=== PATIENT | female | born 1995 | race Caucasian/White ===

== ENCOUNTER 2020-12-26 11:18 | Emergency (ER) | payer OTHER, SELFPAY ==
[2020-12-26 11:21] VITALS: BP 135/83; PULSE 114; RESP 16; TEMP 36.6; O2SAT 100
--- NOTE | 2020-12-26 11:57 | ED.GENADULT ---
HPI - General Adult General Chief complaint: Unspecified Stated complaint: swelling in throat Time Seen by Provider: 12/26/20 11:48 Source: patient Mode of arrival: ambulatory Limitations: no limitations History of Present Illness HPI narrative: This is a 25 year old female that presents to the ER for sore throat since yesterday. Also reports fever. Reports worsening swelling this morning which prompted her to be seen. Denies dyspnea or inability to swallow. Related Data Home Medications Medication Instructions Recorded Confirmed Blisovi Fe 1.530 (28) 1.5 tablet PO DAILY 09/15/19 09/24/19 alprazolam 0.5 mg PO TID 09/15/19 09/24/19 diphenhydramine HCl [Benadryl] 25 mg PO HS 09/15/19 09/24/19 sertraline 25 mg tablet 25 mg PO DAILY 09/24/19 09/24/19 subcutaneous insulin pump #1 each 09/24/19 09/24/19 Allergies Allergy/AdvReac Type Severity Reaction Status Date / Time cefixime Allergy Mild Rash Verified 09/22/19 12:58 clindamycin Allergy Mild Vomiting Verified 09/22/19 12:58 buspirone [From BuSpar] Allergy Anaphylaxis Verified 12/26/20 12:01 Review of Systems Review of Systems: Narrative: CONSTITUTIONAL: Reports fever ENT: Reports sore throat RESPIRATORY: Denies cough or dyspnea. All systems reviewed & are unremarkable except as noted in HPI and below PMFSH Past Medical History Medical History (Updated 12/26/20 @ 12:19 by Kandy Nick PA-C) Insulin dependent diabetes mellitus Marijuana abuse, continuous Family History Family History (System 09/22/19 @ 12:58 by Soco Osborne) Mother Family history of obesity Family history of mental disorder Family history of migraine headaches Grandparent Family history of mental disorder Depression Hypertension Asthma Carcinoma of colon Mother Hypertension Family history of renal cell carcinoma Social History Social History Smoking status: Never smoker Second hand tobacco smoke exposure: No Alcohol intake: never Substance use type: marijuana Gender identity (if verbalized by the patient): Female Exam Narrative: Exam Narrative: GENERAL: Well-appearing, well-nourished, and in no acute distress. HEAD: Normocephalic, atraumatic. EYES: EOMI. ENT: Nares clear, no rhinorrhea or epistaxis. Mucous membranes moist. Oropharynx with symmetric tonsillar hypertrophy, no exudate or other lesions. Uvula is midline. No trismus. NECK: Supple. No adenopathy or masses. CHEST: Clear to auscultation. No respiratory distress. No wheezes rales or rhonchi HEART: Regular rate and rhythm. No murmur heard. Normal peripheral pulses. EXTREMITIES: Normal range of motion. No edema. SKIN: Warm, dry, no rash. NEURO: No focal deficits. Alert and oriented x3. PSYCH: Normal mood and affect Course Vital Signs Vital signs: Vital Signs Temperature 97.9 F 12/26/20 11:21 Pulse Rate 114 H 12/26/20 11:21 Respiratory Rate 16 12/26/20 11:21 Blood Pressure 135/83 12/26/20 11:21 Pulse Oximetry 100 12/26/20 11:21 Temperature 97.9 F 12/26/20 11:21 Pulse Rate 114 H 12/26/20 11:21 Respiratory Rate 16 12/26/20 11:21 Blood Pressure 135/83 12/26/20 11:21 Pulse Oximetry 100 12/26/20 11:21 Medical Decision Making MDM Narrative Medical decision making narrative: Patient presents the emergency department for sore throat and fever. She is afebrile and nontoxic-appearing. Symmetric tonsillar hypertrophy. Uvula is midline. Her rapid strep was negative, but with typical symptoms I will treat with an antibiotic. We will send strep for culture. Patient also given a dose of Decadron to help with swelling. She is stable and felt appropriate for further outpatient evaluation. She was given warnings to return to the ED Vital Signs Vital Signs: Vital Signs Temperature 97.9 F 12/26/20 11:21 Pulse Rate 114 H 12/26/20 11:21 Respiratory Rate 16 12/26/20 11:21 Blood Pressure 135/8
[2020-12-26] MEDS: AMOXICILLIN 500 MG CAPSULE PO (12:30)
== END 2020-12-26 12:33 | disposition home or self-care (01) ==
PROVIDERS: Emergency Provider Family Medicine; PCP Nurse Practitioner Family
DX: J02.9 Acute pharyngitis, unspecified (principal); E11.9 Type 2 diabetes mellitus without complications; Z79.4 Long term (current) use of insulin; Z96.41 Presence of insulin pump (external) (internal)
CPT/HCPCS: 87081; 87880; 96374; 99284; A9270; J1100

== ENCOUNTER 2020-12-31 15:00 | Emergency (ER) | payer OTHER, SELFPAY ==
[2020-12-31 15:02] VITALS: BP 133/81; PULSE 132; RESP 18; TEMP 36.7; O2SAT 99
[2020-12-31 15:49] VITALS: PULSE 119
[2020-12-31 15:50] LABS: Basophils Percent Auto 0.3 % (0.2-1.2); Eosinophils Absolute Auto 0.1 K/mm3 (0-0.3); Eosinophils Percent Auto 1.1 % (0-4.4); Hematocrit 40.7 % (37.0-47.0); Hemoglobin 14.5 g/dL (12.0-15.0); Immature Granulocyte Absolute 0.01 K/mm3 (0.00-0.031); Immature Granulocyte Percent A 0.2 % (0-0.5); Lymphocytes Absolute Auto 1.22 K/mm3 (0.9-3.2); Lymphocytes Percent Auto 19.1 % (18.3-44.2); Mean Corpuscular HGB Conc 35.6 g/dl (32-36); Mean Corpuscular Hemoglobin 32.2 pg (26-34); Mean Corpuscular Volume 90.2 fl (80-100); Mean Platelet Volume 9.5 fl (7.4-10.4); Monocytes Absolute Auto 0.4 K/mm3 (0.1-0.6); Monocytes Percent Auto 6.1 % (2.6-8.5); Neutrophils Absolute Auto 4.7 K/mm3 (1.3-6.7); Neutrophils Percent Auto 73.2 % (45.5-73.1); Platelet Count Result 273 k/mm3 (150-375); Red Blood Count 4.51 M/mm3 (4.2-5.4); Red Cell Distribution Width 11.7 % (11.5-14.5); White Blood Count 6.4 K/mm3 (4.5-10.0)
[2020-12-31 15:54] LABS: Add Urine Microscopic? YES; Amorphous Sediment Urine Few; Appearance Urine Cloudy (Clear); Bacteria Urine Trace /hpf; Bilirubin Urine Negative (Negative); Blood Urine Negative (Negative); Color Urine Yellow (Yellow); Glucose Urine UA 1+ mg/dL (Negative); Ketones Urine 2+ mg/dL (Negative); Leukocyte Esterase Ur Negative LEU/UL (Negative); Mucus Urine Rare /lpf; Nitrate Urine Negative (Negative); Protein Urine 1+ mg/dL (Negative); RBC Urine 0-2 /hpf (0-2); Specific Grav Ur 1.018 (1.001-1.035); Squamous Epithelial Cell Urine Occasional /hpf (Few); Urobilinogen Urine Negative mg/dL (<2.0); WBC Urine 0-3 /hpf
[2020-12-31] MEDS: SODIUM CHLORIDE 0.9% IV 1,000 ML 999 ML IV CONT ×2 (16:01→16:45)
[2020-12-31 16:03] LABS: Alanine Aminotransferase 21 U/L (4-35); Albumin Level 4.8 g/dL (3.5-5.1); Alkaline Phosphatase 51 U/L (38-126); Anion Gap 11 mmol/L (8-16); Aspartate Amino Transferase 32 U/L (14-36); Bilirubin,Total 1.1 mg/dL (0.2-1.3); Blood Urea Nitrogen 14 mg/dL (7-17); Calcium 9.7 mg/dL (8.4-10.2); Carbon Dioxide 22 mmol/L (22-30); Chloride 103 mmol/L (98-107); Estimated CRCL calculation 80 ml/min; Estimated Glomerular Filt Rate > 60; Glucose 160 mg/dL (65-105); Potassium 3.8 mmol/L (3.4-5.0); Sodium 136 mmol/L (137-145)
--- NOTE | 2020-12-31 16:20 | ED.PSYCH ---
HPI - Psych General Chief Complaint: Psychiatric Symptoms <Brijesh Ramirez MD - Last Filed: 12/31/20 18:47> Stated Complaint: psych evaluation <Brijesh Ramirez MD - Last Filed: 12/31/20 18:47> Time Seen by Provider: 12/31/20 15:24 <Brijesh Ramirez MD - Last Filed: 12/31/20 18:47> History of Present Illness HPI Narrative: Patient is a 25-year-old female who presents ER after reported suicide attempt. Patient reports 2 days ago she tied a purse strap around her neck and attempt to end her own life she. She tied it to a metal bar by her window and then the per strep broke. She did not ever become fully suspended in the air. She has no difficulty breathing or swallowing. Patient has no formal diagnosis of depression and is on no psychiatric medications. She reports that on both sides of her family including her parents there is mental illness. She denies hearing voices. Reports she felt very robotic when she was tying the purse strap and try not and placing around her neck. Reports there is not no inciting event. Patient reported this behavior to her primary care physician today for an unrelated issue. Chart review shows diagnosis of depression in the past. <Brijesh Ramirez MD - Last Filed: 12/31/20 18:47> Related Data Home Medications: Home Medications Medication Instructions Recorded Confirmed alprazolam 0.5 mg PO TID 09/15/19 09/24/19 diphenhydramine HCl [Benadryl] 25 mg PO HS 09/15/19 09/24/19 norethindrone-e.estradiol-iron 1.5 tablet PO DAILY 09/15/19 09/24/19 [Blisovi Fe 1.5/30 (28)] subcutaneous insulin pump #1 each 09/24/19 09/24/19 pravastatin 12/31/20 <Brijesh Ramirez MD - Last Filed: 12/31/20 18:47> Allergies/Adverse Reactions: Allergies Allergy/AdvReac Type Severity Reaction Status Date / Time cefixime Allergy Mild Rash Verified 12/31/20 15:14 clindamycin Allergy Mild Vomiting Verified 12/31/20 15:14 buspirone [From BuSpar] Allergy Anaphylaxis Verified 12/31/20 15:14 <Brijesh Ramirez MD - Last Filed: 12/31/20 18:47> Review of Systems Review of Systems: All systems reviewed & are unremarkable except as noted in HPI and below <Brijesh Ramirez MD - Last Filed: 12/31/20 18:47> Constitutional: Constitutional: Denies chills, Denies fever(s) and Denies weakness <Brijesh Ramirez MD - Last Filed: 12/31/20 18:47> ENT: Denies dysphagia, Denies nasal congestion and Denies sore throat <Brijesh Ramirez MD - Last Filed: 12/31/20 18:47> Cardiovascular: Cardiovascular: Denies chest pain and Denies radiating jaw, neck or arm pain <Brijesh Ramirez MD - Last Filed: 12/31/20 18:47> Respiratory: Respiratory: Denies cough, Denies dyspnea and Denies wheezing <Brijesh Ramirez MD - Last Filed: 12/31/20 18:47> Psychiatric: Psychiatric: Denies anxiety, Denies depression, Denies homicidal ideation and Denies suicidal ideation <Brijesh Ramirez MD - Last Filed: 12/31/20 18:47> PMFSH Past Medical History Medical History: Medical History (Updated 12/31/20 @ 18:47 by Brijesh Ramirez MD) Insulin dependent diabetes mellitus Marijuana abuse, continuous MDD (major depressive disorder) <Brijesh Ramirez MD - Last Filed: 12/31/20 18:47> Surgical History Surgical History: Surgical History (Updated 12/31/20 @ 16:22 by Brijesh Ramirez MD) No pertinent past surgical history <Brijesh Ramirez MD - Last Filed: 12/31/20 18:47> Family History Family History: Family History (System 09/22/19 @ 12:58 by Soco Osborne) Mother Family history of obesity Family history of mental disorder Family history of migraine headaches Grandparent Family history of mental disorder Depression Hypertension Asthma Carcinoma of colon Mother Hypertension Family history of renal cell carcinoma <Brijesh Ramirez MD - Last Filed: 12/31/20 18:47> Social History Social History: Social History (Reviewed 09/24/19 @
[2020-12-31 16:29] LABS: Ethanol < 10 mg/dL (<10)
[2020-12-31 16:32] LABS: Thyroid Stimulating Hormone 0.987 uIU/mL (0.465-4.680)
[2020-12-31 16:40] LABS: Amphetamine Screen Urine Negative (Negative); Barbiturate Screen Urine Negative (Negative); Benzodiazepines Screen Urine Positive (Negative); Cannabinoid Screen Urine Negative (Negative); Cocaine Screen Urine Negative (Negative); Methadone Screen Urine Negative (Negative); Opiate Screen Urine Negative (Negative); Phencyclidine Screen Urine Negative (Negative)
--- NOTE | 2020-12-31 18:38 | PC.NURSE ---
Per ERP Dr. Ramirez pt is medically cleared. RN on hold with crisis at this time.
--- NOTE | 2020-12-31 18:46 | PC.NURSE ---
Crisis notified and will be here within 2 hours.
[2020-12-31 19:01] VITALS: BP 121/73; PULSE 74; RESP 14; O2SAT 98
--- NOTE | 2020-12-31 20:41 | PC.NURSE ---
Crisis at bedside.
--- NOTE | 2020-12-31 20:44 | PC.NURSE ---
irrigation worker presented to ED. Chart printed and endorsed to her in order to find placement for pt. Currently looking to place pt at [facility].
--- NOTE | 2020-12-31 21:33 | PC.NURSE ---
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
[2020-12-31 21:48] LABS: Glucose Point of Care 230 (65-105)
--- NOTE | 2020-12-31 21:48 | PC.NURSE ---
Glucose 230.
--- NOTE | 2020-12-31 23:44 | PC.NURSE ---
Spoke with Derik at [facility] who states he will place pt on waiting list due to lack of Covid results. Derik was advised that it takes 24-48 hours for Covid results to post.
--- NOTE | 2020-12-31 23:45 | PC.NURSE ---
Derik from [facility] states pt will have to have insulin pump removed for placement at facility. Also states to call over when Covid results post.
[2021-01-01 00:25] LABS: SARS-CoV-2 RNA PCR Negative
[2021-01-01] MEDS: LORazepam (*CRX) 0.5 MG TABLET PO (01:33)
--- NOTE | 2021-01-01 01:53 | PC.NURSE ---
RN spoke with Derik at [facility] - will need insulin pump removed during care at [facility]. will return call for bed assignment and accepting
--- NOTE | 2021-01-01 02:13 | PC.NURSE ---
Derik @ [facility] called to give phone number to give nurse to nurse report. At that time [facility] will give us a room # and the accepting Name.
--- NOTE | 2021-01-01 02:18 | PC.NURSE ---
Pt resting on cart with mom at bedside. No complaints or concerns voiced at this time. Pt is calm and cooperative. Sitter remains at bedside.
--- NOTE | 2021-01-01 02:30 | PC.NURSE ---
Report called to Jo at [facility]. Advises that pt cannot be accepted without urine . Will obtain and fax results.
[2021-01-01 03:29] VITALS: BP 136/83; PULSE 94; RESP 18; TEMP 36.7; O2SAT 98
--- NOTE | 2021-01-01 03:30 | PC.NURSE ---
Urine collected and results are negative. Results faxed to [facility].
--- NOTE | 2021-01-01 04:04 | PC.NURSE ---
Called to [facility] to speak with Jo. Message left with nursing staff as she was not available.
--- NOTE | 2021-01-01 04:35 | PC.NURSE ---
Spoke with Jo at [facility] who states she received fax. Pt to endorsed to Dr. Chung with his acceptance and pt to room 207-A. Pt and mother are aware of upcoming transport. No complaints or concerns voiced.
--- NOTE | 2021-01-01 04:46 | PC.NURSE ---
Glucose 143.
[2021-01-01 04:49] LABS: Glucose Point of Care 144 (65-105)
--- NOTE | 2021-01-01 05:20 | PC.NURSE ---
EMS presented to ED for pt transport. IV removed. Insulin pump removed and given to mom. Pt tearful due to having to remove insulin pump and states that she is afraid because she will not have any insulin. Pt and mom advised that glucose will be monitored next facility.
== END 2021-01-01 05:19 ==
PROVIDERS: Emergency Medicine; Emergency Provider Emergency Medicine; PCP Nurse Practitioner Family
DX: T71.162A Asphyxiation due to hanging, intentional self-harm, initial encounter (principal); F32.9 Major depressive disorder, single episode, unspecified; Z20.822 Contact with and (suspected) exposure to COVID-19; E11.9 Type 2 diabetes mellitus without complications; Z79.4 Long term (current) use of insulin
CPT/HCPCS: 36415; 80053; 80307; 81001; 81025; 82948; 84443; 85025; 96360; 99285; A9270; C9803; J7030; U0003; U0005

== ENCOUNTER 2021-03-15 08:16 | Emergency (ER) | payer OTHER, SELFPAY ==
[2021-03-15 08:21] VITALS: BP 128/86; PULSE 97; RESP 20; TEMP 36.8; O2SAT 100
--- NOTE | 2021-03-15 10:10 | ED.GENADULT ---
HPI - General Adult General Chief complaint: Unspecified Stated complaint: sore throat Time Seen by Provider: 03/15/21 09:08 Source: patient, family and RN notes reviewed Mode of arrival: ambulatory Limitations: no limitations History of Present Illness HPI narrative: Patient is a 26-year-old female who presents to emergency department for evaluation of sore throat left-sided that began this morning has had some congestion denies fever has tried areu-yhq-gjybfjy medications with minimal improvement patient presents in no distress notes that she had similar occurrence in the recent past was given an IM shot of steroids and placed on amoxicillin and had resolution patient denies any fever vomiting or other URI symptoms patient otherwise in no distress notes that her blood sugars have been well controlled Related Data Home Medications Medication Instructions Recorded Confirmed norethindrone-e.estradiol-iron 1.5 tablet PO DAILY 09/15/19 01/19/21 [Blisovi Fe 1.5/ (28)] subcutaneous insulin pump #1 each 09/24/19 01/19/21 pravastatin 12/31/20 01/19/21 cetirizine 10 mg tablet 10 mg PO DAILY PRN 01/19/21 01/19/21 lamotrigine 50 mg tablet,extended 50 mg PO DAILY 01/19/21 01/19/21 release 24 hr Allergies Allergy/AdvReac Type Severity Reaction Status Date / Time cefixime Allergy Mild Rash Verified 03/15/21 08:24 clindamycin Allergy Mild Vomiting Verified 03/15/21 08:24 buspirone [From BuSpar] Allergy Anaphylaxis Verified 03/15/21 08:24 Review of Systems Review of Systems: All systems reviewed & are unremarkable except as noted in HPI and below PMFSH Past Medical History Medical History Insulin dependent diabetes mellitus Marijuana abuse, continuous MDD (major depressive disorder) Surgical History Surgical History No pertinent past surgical history Family History Family History (System 09/22/19 @ 12:58 by Soco Osborne) Mother Family history of obesity Family history of mental disorder Family history of migraine headaches Grandparent Family history of mental disorder Depression Hypertension Asthma Carcinoma of colon Mother Hypertension Family history of renal cell carcinoma Social History Social History Smoking status: Never smoker Second hand tobacco smoke exposure: No Alcohol intake: never Substance use type: marijuana Gender identity (if verbalized by the patient): Female Exam Narrative: Exam Narrative: GENERAL: Well-appearing, well-nourished, and in no acute distress. HEAD: Normocephalic, atraumatic. EYES: PERRLA and EOMI. ENT: Nares clear, no rhinorrhea or epistaxis. Mucous membranes moist. Oropharynx with erythema in the left tonsillar region with edema of the uvula uvula is midline no trismus or drooling no other space-occupying lesions noted. TMs with poor landmarks nonerythematous NECK: Supple. Shotty anterior adenopathy no other masses or deformities CHEST: Clear to auscultation. No respiratory distress. No wheezes rales or rhonchi HEART: Regular rate and rhythm. No murmur heard. EXTREMITIES: Normal range of motion. No edema. SKIN: Warm, dry, no rash. NEURO: No focal deficits. Alert and oriented x3. Cranial nerves II through XII grossly intact. Normal speech PSYCH: Normal mood and affect. Course Course Emergency Course: Patient evaluated in the emergency department will be discharged home with ENT follow-up agreeing with this plan provided with reasons to return is afebrile nontoxic-appearing and felt appropriate for outpatient reevaluation Vital Signs Vital signs: Vital Signs Temperature 98.2 F 03/15/21 08:21 Pulse Rate 97 03/15/21 08:21 Respiratory Rate 20 03/15/21 08:21 Blood Pressure 128/86 03/15/21 08:21 Pulse Oximetry 100 03/15/21 08:21 Temperature 98.2 F 0
[2021-03-15] MEDS: DEXAMETHASONE SOD PHOS INJ 4 MG/ML VIAL 10 MG IM (10:15)
== END 2021-03-15 10:25 | disposition home or self-care (01) ==
PROVIDERS: Emergency Provider Emergency Medicine; PCP Nurse Practitioner Family
DX: J02.9 Acute pharyngitis, unspecified (principal); E11.9 Type 2 diabetes mellitus without complications; Z79.4 Long term (current) use of insulin; F32.9 Major depressive disorder, single episode, unspecified
CPT/HCPCS: 87081; 87880; 96372; 99283; J1100

== ENCOUNTER 2023-02-04 21:15 | Observation (INO) | payer OTHER, BC, SELFPAY ==
--- NOTE | ~2023-02-04 | CT_ITS ---
EXAMINATION: CT abdomen pelvis w con DATE: 02/04/2023 23:52 INDICATION: Right lower quadrant abdominal pain. TECHNIQUE: Computed tomography (CT) of the abdomen and pelvis was performed with 100 mL Omnipaque 350 intravenous contrast. Automated exposure control and iterative reconstruction technique were employe d. The dose-length product was 246.66 mGy-cm. COMPARISON: CT abdomen and pelvis 08/30/2012 FINDINGS: The visualized portions of the lung bases demonstrate mild atelectasis. No pleural effusion . The heart size is normal. No pericardial effusion. There is a 5 mm cyst in the liver. The gallbladd er, spleen, pancreas, adrenal glands, and left kidney are normal. There is a delayed nephrogram in ri ght kidney. There is mild right hydronephrosis. There is a 4 mm stone in proximal right ureter. There is an intrauterine device in expected position. There are no dilated loops of bowel. The appendix is normal. There is physiologic fluid in the pelvis. There are no pathologically enlarged lymph nodes. There is mild lumbar spondylosis. IMPRESSION: 1. 4 mm stone in proximal right ureter with mild right hydronephrosis. Reviewed, dictated and finalized at location A.
--- NOTE | ~2023-02-04 | XR_ITS ---
EXAMINATION: XR abdomen/kub 1V INDICATION: Right ureteral stone TECHNIQUE: Supine views of the abdomen were obtained on 2 radiographs. COMPARISON: CT from today FINDINGS: The known right proximal ureteral stone is not definitely identified. Bowel contents overli e its expected position. The bowel gas pattern is normal. The visualized lung bases are clear. An IUD is noted. Contrast from earlier CT opacifies the urinary bladder. IMPRESSION: 1. Known proximal right ureteral stone obscured by bowel contents. Reviewed, dictated and finalized at location B.
[2023-02-04 21:17] VITALS: BP 146/77; PULSE 141; RESP 16; TEMP 36.9; O2SAT 99
[2023-02-04 22:01] LABS: Basophils Percent Auto 0.4 % (0.2-1.2); Eosinophils Absolute Auto 0.2 K/mm3 (0-0.3); Eosinophils Percent Auto 2.4 % (0-4.4); Hematocrit 41.8 % (37.0-47.0); Hemoglobin 14.3 g/dL (12.0-15.0); Immature Granulocyte Absolute 0.03 K/mm3 (0.00-0.031); Immature Granulocyte Percent A 0.4 % (0-0.5); Lymphocytes Absolute Auto 3.07 K/mm3 (0.9-3.2); Lymphocytes Percent Auto 36.2 % (18.3-44.2); Mean Corpuscular HGB Conc 34.2 g/dl (32-36); Mean Corpuscular Hemoglobin 32.4 pg (26-34); Mean Corpuscular Volume 94.6 fl (80-100); Mean Platelet Volume 9.4 fl (7.4-10.4); Monocytes Absolute Auto 0.7 K/mm3 (0.1-0.6); Monocytes Percent Auto 7.8 % (2.6-8.5); Neutrophils Absolute Auto 4.5 K/mm3 (1.3-6.7); Neutrophils Percent Auto 52.8 % (45.5-73.1); Platelet Count Result 299 k/mm3 (150-375); Red Blood Count 4.42 M/mm3 (4.2-5.4); Red Cell Distribution Width 12.2 % (11.5-14.5); White Blood Count 8.5 K/mm3 (4.5-10.0)
[2023-02-04 22:05] LABS: Appearance Urine Clear (Clear); Bacteria Urine None Seen /hpf; Bilirubin Urine Negative (Negative); Blood Urine 3+ (Negative); Color Urine Yellow (Yellow); Glucose Urine UA 2+ mg/dL (Negative); Ketones Urine Trace mg/dL (Negative); Leukocyte Esterase Ur Negative LEU/UL (Negative); Nitrate Urine Negative (Negative); Non Pathogenic Casts 0-2; Protein Urine 1+ mg/dL (Negative); RBC Urine 21-50 /hpf (0-2); Specific Grav Ur 1.028 (1.001-1.035); Squamous Epithelial Cell Urine None seen /hpf (Few); WBC Urine 0-5 /hpf
[2023-02-04 22:06] LABS: Add Urine Microscopic? YES
[2023-02-04 22:12] LABS: Alanine Aminotransferase 22 U/L (6-35); Albumin Level 5.2 g/dL (3.5-5.1); Alkaline Phosphatase 67 U/L (38-126); Anion Gap 12 mmol/L (8-16); Aspartate Amino Transferase 24 U/L (14-36); Bilirubin,Total 0.7 mg/dL (0.2-1.3); Blood Urea Nitrogen 13 mg/dL (7-17); Calcium 9.7 mg/dL (8.4-10.2); Carbon Dioxide 21 mmol/L (22-30); Chloride 102 mmol/L (98-107); Estimated CRCL calculation 69 ml/min; Estimated Glomerular Filt Rate > 60; Glucose 116 mg/dL (65-110); Potassium 4.1 mmol/L (3.4-5.0); Sodium 135 mmol/L (137-145)
[2023-02-04] MEDS: SODIUM CHLORIDE 0.9% IV 1,000 ML 999 ML IV CONT (22:56)
[2023-02-04] MEDS: ONDANSETRON INJ 4 MG/2 ML VIAL IV PUSH (22:56)
[2023-02-04] MEDS: MORPHINE SULFATE (*CRX) 4 MG/ML INJ IV PUSH (22:56)
--- NOTE | 2023-02-04 22:57 | ED.FEMALEGU ---
HPI - Female Genitourinary General Chief complaint: Urogenital-Female <Quinten Easley PA-C - Last Filed: 02/05/23 02:25> Stated complaint: right flank and right lower abd pain <CONCETTA Gray Last Filed: 02/05/23 02:25> Time Seen by Provider: 02/04/23 22:28 <CONCETTA Gray Last Filed: 02/05/23 02:25> Source: patient <CONCETTA Gray Last Filed: 02/05/23 02:25> Mode of arrival: ambulatory <CONCETTA Gray Last Filed: 02/05/23 02:25> Limitations: no limitations <CONCETTA Gray Last Filed: 02/05/23 02:25> History of Present Illness HPI Narrative: This is a 20-year-old female presents to the ED with chief complaint of right flank pain intermittently for 2 weeks and worse tonight. Reports the pain became severe 2 hours ago. She reports pain radiates from the right flank into the right lower quadrant. She does report some dysuria. Denies hematuria or frequency. Also endorses nausea with no episodes of emesis. Denies diarrhea. Denies fevers, chills, chest pain, shortness of breath, cough. States she is on IUD control. Denies any pelvic pain, vaginal bleeding or discharge. No past abdominal surgical history. States she has history of stones in the past and feels like she is having another one today. <CONCETTA Gray Last Filed: 02/05/23 02:25> Related Data Home medications: Home Medications Medication Instructions Recorded Confirmed subcutaneous insulin pump #1 ea 09/24/19 02/05/23 levonorgestrel 21 mcg/24 hours (8 1 insert intrauterine ONCE 04/19/21 02/05/23 yrs) 52 mg intrauterine device (Mirena) norethindrone acetate 1.5 1 tablet PO DAILY 04/19/21 02/05/23 mg-ethinyl estradiol 30 mcg tablet (Aurovela) sertraline 100 mg tablet 100 mg PO DAILY 02/05/23 02/05/23 <Quinten Easley PA-C - Last Filed: 02/05/23 02:25> Allergies/Adverse reactions: Allergies Allergy/AdvReac Type Severity Reaction Status Date / Time cefixime Allergy Mild Rash Verified 02/04/23 21:16 clindamycin Allergy Mild Vomiting Verified 02/04/23 21:16 buspirone [From BuSpar] Allergy Anaphylaxis Verified 02/04/23 21:16 <Quinten Easley PA-C - Last Filed: 02/05/23 02:25> Review of Systems Review of Systems: CONSTITUTIONAL: Denies fever, chills, or sweats. EYES: Denies visual changes, redness, or discharge. ENT: Denies rhinorrhea, congestion, sore throat, or otalgia. CARDIOVASCULAR: Denies chest pain, palpitations, or edema. RESPIRATORY: Denies cough or dyspnea. GASTROINTESTINAL: See HPI GENITOURINARY: See HPI SKIN: Denies rash or itching. MUSCULOSKELETAL: Denies back pain, joint pain, or myalgia. NEUROLOGIC: Denies headache, numbness, dizziness, or weakness. PSYCHIATRIC: Denies anxiety or depression. <Quinten Easley PA-C - Last Filed: 02/05/23 02:25> [facility] Past Medical History Medical History: Medical History Anxiety Chronic pharyngitis GERD (gastroesophageal reflux disease) Hypercholesteremia Hyperlipidemia Insulin dependent diabetes mellitus Irritable bowel syndrome Kidney stones Marijuana abuse, continuous MDD (major depressive disorder) Peripheral neuropathy Thyroid nodule Type 1 diabetes mellitus with hyperglycemia, with long-term current use of insulin <Quinten Easley PA-C - Last Filed: 02/05/23 02:25> Surgical History Surgical History: Surgical History H/O wisdom tooth extraction <Quinten Easley PA-C - Last Filed: 02/05/23 02:25> Family History Family History: Family History Mother Family history of obesity Family history of mental disorder Family history of migraine headaches Grandparent Family history of mental disorder Depression Hypertension Asthma Carcinoma of colon Thyroid disorder Mother Hypertension Family history of r
--- NOTE | 2023-02-04 23:08 | PC.NURSE ---
Report received from CURTIS Zarate. Assumed care of patient at this time.
--- NOTE | 2023-02-04 23:41 | PC.NURSE ---
Patient in CT at this time.
[2023-02-05] MEDS: SODIUM CHLORIDE 0.9% IV 1,000 ML 999 ML IV CONT (00:02)
[2023-02-05] MEDS: HYDROmorphone HCL INJ (*CRX) 1 MG/ML SYR 0.5 MG IV PUSH ×2 (00:03→06:03)
--- NOTE | 2023-02-05 01:43 | PM.IMHP ---
H&P: HPI History of Present Illness Date/Time: 02/05/23 01:43 Chief Complaint: Flank pain Narrative: This is a 28-year-old female with past medical history significant for type 1 diabetes, nephrolithiasis, patient presents to the emergency room due to 3 weeks of flank pain now groin pain as well, nausea, vomiting, diarrhea, night sweats, pain got worse today which prompted her to come to the emergency room. Patient rates her pain at 8/10 in intensity. Preliminary workup was significant for CT of abdomen and pelvis preliminary reported as: EXAMINATION: CT abdomen pelvis w con DATE: 02/04/2023 23:52 INDICATION: Right lower quadrant abdominal pain. TECHNIQUE: Computed tomography (CT) of the abdomen and pelvis was performed with 100 mL Omnipaque 350 intravenous contrast. Automated exposure control and iterative reconstruction technique were employed. The dose-length product was 246.66 mGy-cm. COMPARISON: CT abdomen and pelvis 08/30/2012 FINDINGS: The visualized portions of the lung bases demonstrate mild atelectasis. No pleural effusion. The heart size is normal. No pericardial effusion. There is a 5 mm cyst in the liver. The gallbladder, spleen, pancreas, adrenal glands, and left kidney are normal. There is a delayed nephrogram in right kidney. There is mild right hydronephrosis. There is a 4 mm stone in proximal right ureter. There is an intrauterine device in expected position. There are no dilated loops of bowel. The appendix is normal. There is physiologic fluid in the pelvis. There are no pathologically enlarged lymph nodes. There is mild lumbar spondylosis. IMPRESSION: 1. 4 mm stone in proximal right ureter with mild right hydronephrosis. 4 mm stone at the right ureteropelvic junction final report in progress Review of Systems Review of Systems: Right flank pain, groin pain, nausea, vomiting, diarrhea, night sweats Constitutional: Constitutional: Reports night sweats and Reports poor appetite Eyes: Eyes: Denies change in vision ENT: Denies dysphagia, Denies nasal congestion, Denies nasal discharge, Denies nasal obstruction and Denies odynophagia Cardiovascular: Cardiovascular: Denies chest pain, Denies leg edema, Denies palpitations and Denies dyspnea Respiratory: Respiratory: Denies chest congestion, Denies cough and Denies dyspnea Gastrointestinal: Gastrointestinal: Reports abdominal pain, Denies dyspepsia, Denies heartburn, Reports diarrhea, Reports nausea and Reports vomiting Genitourinary: Genitourinary: Reports flank pain Musculoskeletal: Musculoskeletal: Reports back pain (Right-sided lower back) and Denies myalgias Integumentary/Breasts: Skin/Breast: Denies rash Neurologic: Denies focal weakness and Denies Sensory deficit (Neuro) Psychiatric: Psychiatric: Reports no additional psychiatric complaints and Reports as per HPI Endocrine: Endocrine: Denies cold intolerance, Denies flushing, Denies heat intolerance, Denies polyphagia, Denies polydipsia and Denies palpitations Hematologic/Lymphatic: Hematologic/Lymphatic: Reports no additional hematologic/lymphatic complaints and Reports as per HPI Allergic/Immunologic: Allergic/Immunologic: Reports no additional allergic/immunologic complaints and Reports as per HPI PMFSH Past Medical History Medical History Anxiety Chronic pharyngitis GERD (gastroesophageal reflux disease) Hypercholesteremia Hyperlipidemia Insulin dependent diabetes mellitus Irritable bowel syndrome Kidney stones Marijuana abuse, continuous MDD (major depressive disorder) Peripheral neuropathy Thyroid nodule Type 1 diabetes mellitus with hyperglycemia, with long-term current use of insulin Surgical History Surgical History H/O wisdom tooth extraction Family History Family History Mother Family history of obesity Fami
[2023-02-05 01:54] VITALS: BP 106/69; PULSE 90; RESP 18; TEMP 37.2; O2SAT 99
[2023-02-05] MEDS: CIPROFLOXACIN 400 MG/D5W 200ML 200 ML 200 MG IVPB (02:01)
[2023-02-05 02:15] VITALS: BMI 25.5
[2023-02-05 02:38] LABS: Lactic Acid Reflex 1.1 mmol/L (0.7-2.0)
[2023-02-05] MEDS: ONDANSETRON INJ 4 MG/2 ML VIAL IV PUSH (02:45)
[2023-02-05] MEDS: SODIUM CHLORIDE 0.9% IV 1,000 ML 75 ML IV CONT (02:45)
[2023-02-05 04:00] VITALS: PULSE 88
[2023-02-05 06:00] VITALS: BP 125/71; PULSE 100; RESP 14; TEMP 35.7; O2SAT 98
[2023-02-05 08:00] VITALS: PULSE 89
--- NOTE | 2023-02-05 08:22 | PM.DS ---
DS: Admitting Diagnosis Discharge Date 02/05/23829 Admitting Diagnosis UPJ stone DS: Discharge Diagnosis Discharge Diagnosis (1) Nephrolithiasis: Code(s): N20.0 - Calculus of kidney Status: Acute Assessment and Plan: UPJ stone noted 4mm urology consulted Currently stable trend urine output will follow up outpatient (2) GERD (gastroesophageal reflux disease): Code(s): K21.9 - Gastro-esophageal reflux disease without esophagitis Status: Acute Assessment and Plan: Continue home care (3) Peripheral neuropathy: Code(s): G62.9 - Polyneuropathy, unspecified Status: Acute Assessment and Plan: stable and chronic (4) Chronic diarrhea: Code(s): K52.9 - Noninfective gastroenteritis and colitis, unspecified Status: Acute Assessment and Plan: stable and chronic (5) Insulin dependent diabetes mellitus: Code(s): E11.9 - Type 2 diabetes mellitus without complications; Z79.4 - [facility] (current) use of insulin Status: Acute Assessment and Plan: Glucose 116 Insulin pump Continue to trend adjust therapy as indicate DS: Summary Hospital Course Hospital Course: 02/05/23? 01:43 This is a 28-year-old female with past medical history significant for type 1 diabetes, nephrolithiasis, patient presents to the emergency room due to 3 weeks of flank pain now groin pain as well, nausea, vomiting, diarrhea, night sweats, pain got worse today which prompted her to come to the emergency room.? Patient rates her pain at 8/10 in intensity.? Preliminary workup was significant for CT of abdomen and pelvis preliminary reported as:? 4 mm stone at the right ureteropelvic junction final report in progress. Urology saw patient and stated that she can go and follow up in the office. Currently she is stable for discharge per labs and vital signs. Education has been given, patient verbalized understanding Status at Discharge Functional status at discharge: independent ambulation Overall status at discharge: patient is progressing back to baseline Time Spent with Patient Time attestation: Total time spent providing and/or coordinating discharge services: 48 minutes Time spent: Greater than 30 minutes Specific discharge activities: Diagnostic testing, chart review, developing a treatment plan, education, care coordination documentation, physical exam, result review Exam Narrative: General: well-nourished, well-appearing 28-year-old female, sitting up in bed, comfortable, NARD Neuro: awake, alert and oriented x4, speech clear, no focal neuro deficits noted HEENMT: normocephalic, atraumatic, EOMI, sclerae anicteric, moist oral mucosa Respiratory: Clear to auscultation bilaterally without crackles, rhonchi or wheezes, nonlabored breathing Cardio: regular rate, regular rhythm with S1-S2 Abdomen: nondistended, normoactive bowel sounds, soft, nontender to palpation Extremities: no edema, erythema, or tenderness to palpation, DP pulses 2+ bilaterally Skin: no rashes or lesions, warm and dry Psych: appropriate mood and affect, judgment and insight intact DS: Data Data Completed and Pending Labs on day of discharge: Labs from last 24 hours 02/05/23 02/04/23 02/04/23 02:20 21:55 21:55 WBC 8.5 RBC 4.42 Hgb 14.3 Hct 41.8 MCV 94.6 MCH 32.4 MCHC 34.2 RDW 12.2 Plt Count 299 MPV 9.4 Immature Gran % (Auto) 0.4 Neut % (Auto) 52.8 Lymph % (Auto) 36.2 [place] % (Auto) 7.8 Eos % (Auto) 2.4 Baso % (Auto) 0.4 Lymph # (Auto) 3.07 [place] # (Auto) 0.7 H Eos # (Auto) 0.2 Baso # (Auto) 0.0 Abs Immat Gran (auto) 0.03 Absolute Neuts (auto) 4.5 Absolute Nucleated RBC 0.0 Nucleated RBC % 0.0 Sodium 135 L Potassium 4.1 Chloride 102 Carbon Dioxide 21 L Anion Gap 12 BUN 13 Creatinine 0.80 Estim Creat Leni
--- NOTE | 2023-02-05 08:36 | WPDURCON ---
Assessment and Plan Assessment and plan (1) Ureteral calculus, right: Code(s): N20.1 - Calculus of ureter Status: Acute Assessment and Plan: She is currently pain-free and pain is well controlled. We discussed ureteroscopy. We discussed a trial of conservative stone passage with delayed intervention. She prefers the latter. She has passed a large stone in the past on her own with Flomax and pain medicine. Were going to give her a few dosed passed on her own. She would like to be discharged from the hospital. She knows to return if she has fevers, chills, symptoms of infection causing the refractory pain, refractory nausea vomiting. I will get a KUB to see if the stone is visible. She would like to undergo lithotripsy if able. We will contact her to set up follow-up. Urology Consult Note HPI Date Seen: 02/05/23 Requesting Physician: Rui Philippe MD Primary Care Provider: Nicholas Wagner Consult Narrative Narrative: Rosa Isela Washington is a 28 year old female with history of nephrolithiasis. She has had a 9 mm stone in the past which she was able to pass spontaneous bleed. She has had currently a 2 week history of vague right flank pain. She presented the emergency room last night. CT scan was done which showed a 4 mm proximal ureteral stone. She was given pain medicine. She was admitted for observation. She is feeling much better this morning. Pain is well controlled. There is no nausea or vomiting. There is no fevers. There is no chills. There is no visible blood in the urine. She has no history of or symptoms of urinary tract infection. We discussed intervention for her stone in the form of ureteroscopy versus a trial of conservative stone passage with intervention later this week if she does not pass the stone. She prefers the latter Review of Systems Review of Systems: All systems reviewed & are unremarkable except as noted in HPI and below PMFSH Past Medical History Medical History Anxiety Chronic pharyngitis GERD (gastroesophageal reflux disease) Hypercholesteremia Hyperlipidemia Insulin dependent diabetes mellitus Irritable bowel syndrome Kidney stones Marijuana abuse, continuous MDD (major depressive disorder) Peripheral neuropathy Thyroid nodule Type 1 diabetes mellitus with hyperglycemia, with long-term current use of insulin Surgical History Surgical History H/O wisdom tooth extraction Family History Family History Mother Family history of obesity Family history of mental disorder Family history of migraine headaches Grandparent Family history of mental disorder Depression Hypertension Asthma Carcinoma of colon Thyroid disorder Mother Hypertension Family history of renal cell carcinoma Depression Father Hypertension Grandparent Carcinoma of colon Unknown Kidney disease Nervous system disorder, central Allergies Social History Social History Social History: Caffeine use; soda occasionally Smoking status: Never smoker Second hand tobacco smoke exposure: No Alcohol intake: never Substance use: current Substance use type: marijuana Last use: 02/04/2023 Lack of Transportation: No Lack of Food: Never True Current Housing: I Have Housing Concerned About Future Housing: No Difficulty Paying Gas/Electric Bills: No Difficulty Paying for Meds: No Currently Unemployed: No Education: High School Diploma/GED Difficulty w/ Childcare or Family Care: No Occupation/Education: unemployed Gender identity (if verbalized by the patient): Female Spiritual care concerns: No Meds Home Medications and Allergies Home Medications Medication Instructions Recorded Confirmed Type subcutaneous ins
[2023-02-05 09:30] LABS: Glucose Point of Care 214 mg/dl (65-105)
[2023-02-05] MEDS: HYDROcodone/acetaminophen (*CRX) 5-325 MG TABLET 1 TAB PO (09:57)
--- NOTE | 2023-02-05 15:25 | PCCCNOTE ---
On 02/05/23, the student, [Fabby Thornton ], provided care and completed [facility] documentation on this patient. I have reviewed the student's documentation and agree with the findings.
== END 2023-02-05 10:55 | disposition home or self-care (01) ==
LOC: ANHED 22:28 → ANH3MEDSUR 02-05 07:30
PROVIDERS: Emergency Medicine; Admitting Provider Internal Medicine; Emergency Provider Physician Assistant; Visit Provider Chiropractor
DX: N13.2 Hydronephrosis with renal and ureteral calculous obstruction (principal); K21.9 Gastro-esophageal reflux disease without esophagitis; E10.42 Type 1 diabetes mellitus with diabetic polyneuropathy; K52.9 Noninfective gastroenteritis and colitis, unspecified; E10.65 Type 1 diabetes mellitus with hyperglycemia; F41.9 Anxiety disorder, unspecified; Z96.41 Presence of insulin pump (external) (internal); Z97.5 Presence of (intrauterine) contraceptive device; R00.0 Tachycardia, unspecified; K76.89 Other specified diseases of liver; J31.2 Chronic pharyngitis; E78.5 Hyperlipidemia, unspecified; F12.10 Cannabis abuse, uncomplicated; F32.9 Major depressive disorder, single episode, unspecified; Z79.3 Long term (current) use of hormonal contraceptives; Z79.4 Long term (current) use of insulin; Z79.891 Long term (current) use of opiate analgesic; Z79.899 Other long term (current) drug therapy; Z81.8 Family history of other mental and behavioral disorders
CPT/HCPCS: 36415; 74018; 74177; 80053; 81001; 81025; 82948; 83605; 85025; 87086; 96361; 96365; 96374; 96375; 96376; 99285; A9270; G0378; J0131; J0744; J1170; J2270; J2405; J7030; Q9967

== ENCOUNTER 2023-07-17 07:12 | Emergency (ER) | payer BC, SELFPAY ==
[2023-07-17 07:17] VITALS: BP 137/68; PULSE 107; RESP 16; TEMP 36.7; O2SAT 100
--- NOTE | 2023-07-17 08:16 | ED.ALLEREA ---
HPI - Allergic Reaction General Chief complaint: Allergic Reaction Stated complaint: swelling to eyes Time Seen by Provider: 07/17/23 07:58 History of Present Illness HPI narrative: Patient presents with swelling to R face/eye, which improved with benadryl; this has happened again today. She has had episodes like this in the past and thinks has tried to see an ENT who was not helpful. She has no throat swelling, difficulty breathing, chest pain, nausea or vomiting, or anything else Related Data Home Medications Medication Instructions Recorded Confirmed subcutaneous insulin pump #1 ea 09/24/19 02/05/23 levonorgestrel 21 mcg/24 hours (8 1 insert intrauterine ONCE 04/19/21 02/05/23 yrs) 52 mg intrauterine device (Mirena) norethindrone acetate 1.5 1 tablet PO DAILY 04/19/21 02/05/23 mg-ethinyl estradiol 30 mcg tablet (Aurovela) sertraline 100 mg tablet 100 mg PO DAILY 02/05/23 02/05/23 Allergies Allergy/AdvReac Type Severity Reaction Status Date / Time cefixime Allergy Mild Rash Verified 07/17/23 08:20 clindamycin Allergy Mild Vomiting Verified 07/17/23 08:20 buspirone [From BuSpar] Allergy Anaphylaxis Verified 07/17/23 08:20 Review of Systems Review of Systems: CONST: No fever. HEENT: Facial swelling C/V: No chest pain RESP: No cough GI: No nausea or vomiting : No dysuria. M/S: No joint pain. SKIN: No rash. NEURO: [No headache or focal numbness or weakness] PSYCH: [No depression] [facility] Past Medical History Medical History Anxiety Chronic pharyngitis GERD (gastroesophageal reflux disease) Hypercholesteremia Hyperlipidemia Insulin dependent diabetes mellitus Irritable bowel syndrome Kidney stones Marijuana abuse, continuous MDD (major depressive disorder) Peripheral neuropathy Thyroid nodule Type 1 diabetes mellitus with hyperglycemia, with long-term current use of insulin Surgical History Surgical History H/O wisdom tooth extraction Family History Family History Mother Family history of obesity Family history of mental disorder Family history of migraine headaches Grandparent Family history of mental disorder Depression Hypertension Asthma Carcinoma of colon Thyroid disorder Mother Hypertension Family history of renal cell carcinoma Depression Father Hypertension Grandparent Carcinoma of colon Unknown Kidney disease Nervous system disorder, central Allergies Social History Social History Social History: Caffeine use; soda occasionally Smoking status: Never smoker Second hand tobacco smoke exposure: No Alcohol intake: never Substance use: current Substance use type: marijuana Last use: 02/04/2023 Lack of Transportation: No Lack of Food: Never True Current Housing: I Have Housing Concerned About Future Housing: No Difficulty Paying Gas/Electric Bills: No Difficulty Paying for Meds: No Currently Unemployed: No Education: High School Diploma/GED Difficulty w/ Childcare or Family Care: No Occupation/Education: unemployed Gender identity (if verbalized by the patient): Female Spiritual care concerns: No Exam Narrative: EXAMINATION OF ORGAN SYSTEMS/BODY AREAS: Constitutional: Vital signs per nursing GENERAL:[No acute distress, non-toxic appearing.] HEAD: Normal with no signs of head trauma. EYES: EOMI, conjunctiva normal, slight periorbital edema R eye ENT: Hearing grossly intact, clear speech LUNGS: Nonlabored breathing. HEART: [Regular rate and rhythm] ABD: [Soft], [nontender to palpation] EXT: Normal range of motion SKIN: [No rashes or lesions.] NEURO: [Alert and oriented x 3. No gross focal sensory or strength deficits.] PSYCH: Normal affect Course Vital Signs Vital signs
[2023-07-17 08:25] VITALS: BP 124/85; PULSE 97; RESP 19; O2SAT 100
== END 2023-07-17 08:26 | disposition home or self-care (01) ==
PROVIDERS: Emergency Provider Emergency Medicine
DX: R60.9 Edema, unspecified (principal); E78.00 Pure hypercholesterolemia, unspecified; E10.42 Type 1 diabetes mellitus with diabetic polyneuropathy; K58.9 Irritable bowel syndrome, unspecified; K21.9 Gastro-esophageal reflux disease without esophagitis; F41.9 Anxiety disorder, unspecified; F32.9 Major depressive disorder, single episode, unspecified; Z87.442 Personal history of urinary calculi
CPT/HCPCS: 99283

== ENCOUNTER 2025-08-15 12:04 | Outpatient (CLI) | payer OTHER, SELFPAY | END 2025-08-15 12:05 | disposition home or self-care (01) | LOC: ANHLAB 12:06 | PROVIDERS: Visit Provider Anesthesiology | DX: Z01.818 Encounter for other preprocedural examination (principal); E10.65 Type 1 diabetes mellitus with hyperglycemia; Z79.4 Long term (current) use of insulin | CPT/HCPCS: 99199; 36415 ==

== ENCOUNTER 2025-08-17 11:02 | Outpatient (CLI) | payer SELFPAY ==
[2025-08-17 11:37] LABS: Anion Gap 8 mmol/L (4-12); Blood Urea Nitrogen 11 mg/dL (7-17); Calcium 9.5 mg/dL (8.4-10.2); Carbon Dioxide 25 mmol/L (22-30); Chloride 102 mmol/L (98-107); Estimated Glomerular Filt Rate > 60; Glucose 184 mg/dL (65-110); Potassium 4.6 mmol/L (3.4-5.0); Sodium 135 mmol/L (137-145)
--- OUTSIDE RECORDS SUMMARY | 2025-08-17 12:33 | XMS_ITS | Data Portability ---
Author Organization [facility] [place] Address [address] [place] [address] Care Team Providers Care Order Caller Name Role Phone VIRGIL DUNHAM Primary Care Provider Assessment Encounter Date Assessment Date Assessment LastModified by Organization Details LastModified Time 12/10/2023 12/10/2023 Annual gynecological exam performed. Patient will come back in a year unless there are new symptoms. [email or web address] Not available 12/10/2023 09:12:21 12/12/2024 12/12/2024 Annual gynecological exam performed. Patient will come back in a year unless there are new symptoms. [email or web address] Not available 12/12/2024 09:34:31 Plan of Treatment Reminders Order Date Submit Date Provider Last Modified By Organization Details Last Modified Time Details Appointments SURG Hysterosc opy 2024 12:00P Kristen AYERS MD Not available Not available Not available SURG POST OP 2024 03:00P Kristen AYERS MD Not available Not available Not available Lab None recorded. Referral pelvic floor therapy referral - PELVIC FLOOR THERAPY. Please call the patient to schedule an appt. Thank you 2020 021 [facility] (Outpatient Physical Therapy), [address], [place], [address], 12/11/2021 05:01:09 Procedures None recorded. Surgeries hysterosc opy, removal of foreign body (SURG) 2024 025 [email or web address] [facility], [address], [place], [address], 08/04/2025 09:49:17 Imaging US, transvagi nal 2024 025 [email or web address] [place], [address], [place], [address], 01/13/2025 22:08:38 Medication Orders Slynd 4 mg (28) tablet 2023 024 [email or web address] [facility][id number], [address] [facility], [place], [place], [id number], 12/12/2024 09:38:47 Patient TargetsNo targets recorded. Patient InstructionsNo instructions recorded. Reason for Referral Pelvic Floor Therapy Referra l for Chronic pelvic pain of female PELVIC FLOOR THERAPY. Please call the patient to schedule an appt. Thank you Referring Physician: Tara Allan, H[employer] D[employer] PICKER, Encounter Date: 05/12/2021 Results Created Date Observation Date Name Description Value Unit Range Abnormal Flag Note LastModifiedBy Organization Detail LastModifiedTime 12/10/19 24 12/10/2023 IMAGE GUIDE D PAP AND HPV REGAR DLESS image guided Pap, HPV regardless of Pap result SEE RESULT S BELOW abnormal CASE REPOR T: Cytol ogy Gynec ologi sachin Repor t Case: [id number] Autho blanka g Provi delia: Abeba Carrillo, QIANA Colle cted: 12/10 0906 Order ing Locat ion: [place] [facility] Recei deann: 12/11 0647 First Scree n: Sydnee Kirby Patho logis t: Tor Monte MD Speci men: Scree devaughn Pap - Image d, Cervi x STATE MENT OF ADEQU ACY: Satis facto ry for evalu ation Trans forma tion zone compo nent absen t FINAL DIAGN OSIS: Epith elial Cell Abnor malit y, Squam ous Cell: Atypi sachin Squam ous Cells of Undet ermin ed Signi fican ce (ASC- US). Elect florentino espinoza dakota d by Tor Monte MD on 2023 at 3:25 PM ----- ----- ----- ----- ----- ----- ----- ----- ----- ----- ----- ----- ----- ----- ----- ----- ----- ---- HPV RESUL TS: HPV mRNA E6/E7 : No HPV mRNA Detec luz NOTE: This high risk HPV mRNA assay detec ts fourt een high- risk HPV types (16, 18, 31, 33, 35, 39, 45, 51, 52, 56, 58, 59, 66, 68) witho ut diffe renti ation . COMME NT: This speci men was revie wed by a Cytot echno logis t and/o r Patho logis t (as indic ated in this repor t) after evalu ation using the Thinp rep Imagi ng Syste m. CLINI SACHIN INFOR MATIO N: Menst rual Statu s: LMP (if appli cable ): Clini sachin Histo ry/Pr eviou s Pap: Type of Neopl january (if appli cable ): Signi fican t Clini sachin Findi ngs: Other Histo ry: Hormo caity (if appli cable ): ISRA HADDAD FOLLO W-UP: Follo w up as warra nted, based on curre nt guide lines and indiv idual patie nt consi derat ions. Not Available [facility] (Lab) [address], [place], [address], 12/13/2023 16:29:55 12/12/19 25 12/12/2024 IMAGE GUIDE D PAP, REFLE X HPV IF ASCUS ONLY image guided Pap, reflex HPV ASCUS only SEE RESULT S BELOW CASE REPOR T: Cytol ogy Gynec ologi aschin Repor t Case: [id number] Autho blanka hoff Provi delia: Abeba Carrillo, QIANA Colle cted: 02/28 /2025 1022 Order ing Locat ion: [place] Patho logmadi Recei deann: 12/15 1415 First Scree n: Matheus banerjee, Liana stephenson, CT Speci men: Scree devaughn Pap - Image d, Cervi x STATE MENT OF ADEQU ACY: Satis facto ry for evalu ation Trans forma tion zone compo nent prese nt ----- ----- ----- ----- ----- ----- ----- ----- ----- ----- ----- ----- ----- ----- ----- ----- ----- ---- FINAL DIAGN OSIS: Negat delisa for Intra epith elial Valeria maldonado or Minal hussein (NIL) . 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 CLINI SACHIN INFOR MATIO N: Menst rual Statu s: LMP (if appli cable ): Clini sachin Histo ry/Pr eviou s Pap: Type of Neopl january (if appli cable ): Signi ficlavonne t Clini sachin Findi ngs: Other Histo ry: Hormo caity (if appli cable ): PAP EDUCA MARIELLA L NOTE: The Pap Test is a scree devaughn test with an inher ent false negat delisa rate. Liqui d-bas ed sampl ing may decre ase, but will not elimi rehana, false negat delisa resul ts. A negat delisa resul t does not precl ude the prese nce and/o r devel opmen t of disea se, since the prese nce of abnor mal cells in the sampl e depen ds on the locat ion of the lesio n and sampl ing techn ique. Ramona nued regul ar scree devaughn is the best metho d of cance r preve ntion . If repor luz cytol ogic findi ng do not corre late with physi sachin and/o r histo rical findi ngs, furth er inves tigat ion is recom yasmeen d, as clini nikkie warra nted. Not Available [facility] (Lab) [address], [place], [address], 12/17/2024 12:14:20 04/28/20 21 04/28/2021 US, trans vagin al No observ ation record ed. oss30 [place] [address], [place], [address], 04/28/2021 17:36:00 04/28/20 21 04/28/2021 US, trans vagin al No observ ation record ed. ladonna Flor [address], [place], [address], 06/02/2021 15:15:27 01/14/20 25 01/13/2025 US, trans vagin al No observ ation record ed. [facility] [address], [place], [address], 01/13/2025 14:13:34 01/14/20 25 01/13/2025 US, trans vagin al No observ ation record ed. ROSELINE Flor [address], [place], [address], 01/26/2025 20:35:32 Result Notes None recorded. Problems Name Problem SNOMED Code Status Onset Date Resolution Date Notes Provider Name and Address Organization Details Recorded Time Microsco pic hematuri a [id number] Completed 201011/22/2020 HEMATURI A MICROSCO PIC;Prac mitesh ID: 0001 Gia rivera, [facility] 13:10:27 Screenin g for malignan t neoplasm of cervix Completed 201111/22/2020 Screenin g for malignan t neoplasm s of the cervix;R ecorded Elsewher e: No Locat ion: [facility] S ource: EHR Radiological Technician jayesh: N Practi ce ID: 0001 Lucio lable Time: 10:30:00 AM Gia rivera [facility] 13:10:36 Urinary tract infectio us disease [id number] Completed 201111/22/2020 Urinary Tract Infectio n;Record ed Elsewher e: No Locat ion: [facility] S ource: EHR Radiological Technician jayesh: N Practi ce ID: 0001 Lucio lable Time: 05:15:00 PM Gia rivera, [facility] 13:10:52 Speciali zed medical examinat ion Completed 201311/22/2020 Gynecolo gical Examinat ion;Arnaldo rded Elsewher e: No Locat ion: [facility] S ource: EHR Radiological Technician jayesh: N Practi ce ID: 0001 Lucio lable Time: 11:00:00 AM Gia rivera [facility] 13:10:45 Adult health examinat ion Completed 201311/22/2020 ROUTINE MEDICAL EXAM;Rec orded Elsewher e: No Locat ion: [facility] S ource: EHR Radiological Technician jayesh: N Practi ce ID: 0001 Lucio lable Time: 11:00:00 AM Gia rivera [facility] 13:10:10 Venereal disease screenin g Completed 201311/22/2020 Screenin g examinat ion for venereal disease; Recorded Elsewher e: No Locat ion: [facility] S ource: EHR Radiological Technician jayesh: N Practi ce ID: 0001 Lucio lable Time: 11:00:00 AM Gia Mendez [facility], [facility] 13:10:54 Speciali zed medical examinat ion Completed 201311/22/2020 Other specifie d chlamydi al diseases ;Recorde d Elsewher e: No Locat ion: [facility] S ource: EHR Radiological Technician jayesh: N Practi ce ID: 0001 Lucio lable Time: 11:00:00 AM Gia Mendez [facility], [facility] 13:10:48 Depressi ve disorder [id number] Completed 201304/19/2021 Depressi ve disorder , not elsewher e classifi ed;Pract ice ID: 0001 Jacklyn Koroma [facility], [facility] 15:01:07 Removal of intraute rine device Completed 201511/22/2020 Encounte r for removal of intraute rine contrace ptive device;R ecorded Elsewher e: No Locat ion: [facility] S ource: EHR Radiological Technician jayesh: N Practi ce ID: 0001 Lucio lable Time: 02:30:00 PM Gia Mendez [facility], [facility] 13:10:34 Contrace ptive sheath status [id number] Completed 201511/22/2020 IUD follow up;Recor ded Elsewher e: No Locat ion: [facility] S ource: EHR Radiological Technician jayesh: N Practi ce ID: 0001 Lucio lable Time: 04:45:00 PM Gia Mendez [facility], [facility] 13:10:[address] Concept Completed 201611/22/2020 Encntr for salvage repairer exam (general ) (routine ) w/o abn findings ;Recorde d Elsewher e: No Locat ion: bk antony [facility] S ource: EHR Radiological Technician jayesh: N Practi ce ID: 0001 Lucio lable Time: 11:00:00 AM Gia Mendez nicole, [facility] 13:10:43 Cervicov aginal cytology specimen unsatisf actory [id number] Completed 201611/22/2020 Unsatisf actory cytologi c smear of cervix;R ecorded Elsewher e: No Locat ion: [facility] S ource: EHR Radiological Technician jayesh: N Practi ce ID: 0001 Lucio lable Time: 11:15:00 AM Gia Mendez [facility], [facility] 13:10:12 Evaluati on finding Completed 201711/22/2020 Hematuri a, unspecif ied;Prac mitesh ID: 0001 Gia Mendez [facility], [facility] 13:10:[address] Concept Completed 201811/22/2020 Encntr for general adult medical exam w/o abnormal findings ;Recorde d Elsewher e: No [facility]at ion: [facility] [place] [facility] N Practi ce ID: 0001 Lucio lable Time: 01:00:00 PM Gia Mendez [facility] 13:10:41 Bleeding Completed 201811/22/2020 Abnormal uterine and vaginal bleeding , unspecif ied;Arnaldo rded Elsewher e: No Locat ion: [facility] antony [facility] S ource: EHR Radiological Technician jayesh: N Practi ce ID: 0001 Lucio lable Time: 11:00:00 AM Gia Mendez [facility] 13:10:20 Mela george [id number] Completed 201804/19/2021 Mela george;Record ed Elsewher e: No [facility] Radiological Technician jayesh: N Practi ce ID: 0001 Lucio lable Time: 11:00:00 AM Jacklyn rivera [facility] 15:01:09 Hyperpro lactinem ia 388604552 Completed 201804/19/2021 Hyperpro lactinem ia;Recor ded Elsewher e: No [facility] Radiological Technician jayesh: N Practi ce ID: 0001 Lucio lable Time: 03:30:00 PM Jacklyn rivera [facility] 15:01:10 Pelvic and perineal pain [id number] Completed 201811/22/2020 Pelvic and perineal pain;Rec orded Elsewher e: No [facility]: EHR Radiological Technician jayesh: N Practi ce ID: 0001 Lucio lable Time: 03:00:00 PM Gia Mendez nicole [facility] 13:10:[address] Concept Completed 201811/22/2020 Anxiety disorder , unspecif ied;Prac mitesh ID: 0001 Gia Mendez nicole, [facility] 13:10:38 Pregnanc y test negative [id number] Completed 201811/22/2020 Encounte r for pregnanc y test, result negative ;Recorde d Elsewher e: No Locat ion: [facility] S ource: EHR Radiological Technician jayesh: N Practi ce ID: 0001 Lucio lable Time: 09:45:00 AM Gia Mendez nicole [facility] 13:10:31 Problem Notes None recorded. Procedures Surgical History Date Name Laterality Status Provider Name and Address Organization Details Recorded Time 12/12 Date of Last Pap Smear completed Aliya Marshall [facility] 5 16:07:14 11/22 IUD Removal completed Tara Allan QIANA- [address], [place], [address], [place] [facility] 1 14:13:08 11/22 IUD Insertion completed Gia Mendez [facility] 1 13:15:19 10/15 Date of Last Colonoscopy completed Maude Mendez [facility] 4 09:16:55 10/15 colonoscopy completed Jacklynmadi Koroma [facility] 1 14:21:48 10/15 esophagogastroduodenoscopy completed Jacklyn Koroma [facility] 1 14:21:59 10/15 extraction of wisdom tooth completed Ze Mendez [facility] 1 13:13:30 Imaging Results None recorded. Procedure Notes None recorded. Medical Equipment None Reported. Allergies Allergen ID Allergen Name Allergen Category Reaction Reaction Severity Criticality Documentation Date Start Date Code Code System Note Provider Name and Address Organization Details Recorded Time 1173 cefixime medicatio n Not available Not available Not available 04/14/2020 02660 RxNorm Ines rivera, [facility] 0 12:03:24 Medications Name Sig Start Date Stop Date Status Note LastModified by Organization Details LastModified Time Mirena 21 mcg/24 hr (up to 8 years) 52 mg intrauter ine device Take by intraute rine route. 2020 active mirena IUD inserted 11/22/2020 and need removed by 11/22/2025 Not Available Not Available Not Available venlafaxi ne ER 37.5 mg capsule,e xtended release 24 hr 11/22 completed Not Available Not Available Not Available acetamino phen 325 mg tablet TAKE 2 TABLETS BY MOUTH EVERY 6 HOURS FOR UP TO 10 DAYS NEEDED FOR MILD PAIN OR MODERATE PAIN 12/12 completed Not Available Not Available Not Available Glucagon Emergency Kit 1 mg solution for injection 12/12 completed Not Available Not Available Not Available hydrocodo ne 5 mg-acetam inophen 325 mg tablet TAKE 1 TABLET BY MOUTH EVERY 6 HOURS NEEDED FOR PAIN 12/10 completed Not Available Not Available Not Available prazosin 1 mg capsule TAKE 3 CAPSULES BY MOUTH EVERY DAY AT BEDTIME 03/10 completed Not Available Not Available Not Available lisinopri l 20 mg tablet TAKE 1 TABLET BY MOUTH EVERY DAY active Not Available Not Available No t Available famotidin e 40 mg tablet TAKE 1 TABLET BY MOUTH TWICE DAILY 12/12 completed Not Available Not Available Not Available sertralin e 100 mg tablet TAKE 1 TABLET BY MOUTH EVERY DAY DIRECTED 12/12 completed Not Available Not Available Not Available oxcarbaze pine 300 mg tablet TAKE 1 TABLET BY MOUTH TWICE DAILY DIRECTED 03/10 completed Not Available Not Available Not Available sulfameth oxazole 800 mg-trimet hoprim 160 mg tablet take 1 tablet by oral route every 12 hours 04/10 completed [facility] Locat ion: [facility] odify By: [email or web address] Peyton r DateTime : 02/29/20 19 11:00:00 AM Not Available Not Available Not Available omeprazol e 40 mg capsule,d elayed release 03/10 completed Not Available Not Available Not Available amoxicill in 500 mg tablet TAKE 1 TABLET BY MOUTH EVERY 8 HOURS FOR 10 DAYS 04/19 completed Not Available Not Available Not Available lamotrigi ne 25 mg tablet TAKE 1 TABLET BY MOUTH EVERY DAY 03/10 completed Not Available Not Available Not Available ketorolac 10 mg tablet TAKE 1 TABLET BY MOUTH EVERY 6 HOURS FOR UP TO 5 DAYS NEEDED FOR MODERATE PAIN 12/10 completed Not Available Not Available Not Available alprazola m 0.5 mg tablet TAKE 1 TABLET BY MOUTH TWICE DAILY 12/12 completed Not Available Not Available Not Available alprazola m 0.25 mg tablet TAKE 1 TABLET BY MOUTH TWICE DAILY DIRECTED 04/19 completed Not Available Not Available Not Available ziprasido ne 20 mg capsule TAKE 1 CAPSULE BY MOUTH TWICE DAILY DIRECTED 03/10 completed Not Available Not Available Not Available tamsulosi n 0.4 mg capsule TAKE 1 CAPSULE BY MOUTH EVERY NIGHT FOR 14 DAYS 12/10 completed Not Available Not Available Not Available trazodone 100 mg tablet TAKE 1 TABLET BY MOUTH EVERY DAY AT BEDTIME 03/10 completed Not Available Not Available Not Available hydrocodo ne 7.5 mg-acetam inophen 325 mg tablet TAKE 1 TABLET BY MOUTH EVERY 6 HOURS 12/10 completed Not Available Not Available Not Available pantopraz ole 40 mg tablet,de layed release TAKE 1 TABLET BY MOUTH TWICE DAILY 12/12 completed Not Available Not Available Not Available triamcino lone acetonide 0.1 % topical ointment APPLY A THIN LAYER TO THE AFFECTED AREA(S) BY TOPICAL ROUTE 2 TIMES PER DAY as needed 11/22 completed Not Available Not Available Not Available buspirone 10 mg tablet 03/10 completed Not Available Not Available Not Available lisinopri l 10 mg tablet TAKE 1 TABLET BY MOUTH DAILY 08/03 completed Not Available Not Available Not Available omeprazol e 20 mg capsule,d elayed release 03/10 completed Not Available Not Available Not Available Macrodant in 100 mg capsule take 1 capsule (100MG) by oral route every 6 hours for 7 days with food 08/21 completed Prescrib carmina Zamora e: No Locat ion: [facility] odify By: melia Zarate er DateTime : 08/15/20 12 05:15:00 PM Not Available Not Available Not Available pravastat in 20 mg tablet 12/12 completed Not Available Not Available Not Available lisinopri l 5 mg tablet TAKE 1 TABLET BY MOUTH DAILY 03/10 completed Not Available Not Available Not Available insulin lispro (U-100) 100 unit/mL subcutane ous solution USE 80-100 UNITS ONCE DAILY VIA INSULIN PUMP active Not Available Not Available No t Available oxycodone -acetamin ophen 7.5 mg-325 mg tablet TAKE 1 TABLET BY MOUTH EVERY 6 HOURS NEEDED FOR SEVERE PAIN 12/12 completed Not Available Not Available Not Available ondansetr on 4 mg disintegr ating tablet DISSOLVE 1 TABLET ON THE TONGUE EVERY 6 HOURS FOR UP TO 5 DAYS NEEDED FOR NAUSEA OR VOMITING 12/10 completed Not Available Not Available Not Available cefdinir 300 mg capsule TAKE 1 CAPSULE BY MOUTH TWICE DAILY FOR 10 DAYS 12/10 completed Not Available Not Available Not Available fluticaso ne propionat e 50 mcg/actua tion nasal spray,john pension SHAKE LIQUID AND USE 1 SPRAY IN EACH NOSTRIL DAILY 12/12 completed Not Available Not Available Not Available sertralin e 50 mg tablet take 1 tablet by oral route every day 11/22 completed Not Available Not Available Not Available lisinopri l 2.5 mg tablet TAKE 1 TABLET BY MOUTH EVERY DAY 12/10 completed Not Available Not Available Not Available Autoject 2 subcutane ous insulin pen 03/10 completed Prescrib ed Elsewher e: Yes Loca tion: [facility] odify By: vangie Hardy ncounter DateTime : 02/26/20 12 10:30:00 AM Not Available Not Available Not Available lamotrigi ne 100 mg tablet TAKE 1 TABLET BY MOUTH EVERY DAY IN THE MORNING 03/10 completed Not Available Not Available Not Available loratadin e 10 mg tablet TAKE 1 TABLET BY MOUTH EVERY DAY NEEDED FOR SEASONAL ALLERGIE S active Not Available Not Available No t Available oxycodone 5 mg tablet TAKE 1 TABLET BY MOUTH EVERY 6 HOURS FOR UP TO 3 DAYS NEEDED FOR SEVERE PAIN 12/10 completed Not Available Not Available Not Available hydroxyzi ne pamoate 25 mg capsule 03/10 completed Not Available Not Available Not Available Lexapro 20 mg tablet take 1 tablet by oral route every day 11/04 completed Prescrib ed Elsewher e: No [facility] odify By: dagoberto Hardy ncounter DateTime : 08/24/20 14 11:00:00 AM Not Available Not Available Not Available rosuvasta tin 20 mg tablet TAKE 1 TABLET BY MOUTH DAILY 12/12 completed Not Available Not Available Not Available (28) 1.5 mg-30 mcg (21)/75 mg (7) tablet TAKE 1 TABLET BY MOUTH EVERY DAY 12/10 completed Not Available Not Available Not Available topiramat e 50 mg tablet 12/12 completed Not Available Not Available Not Available OneTouch UltraSoft Lancets 03/10 completed Not Available Not Available Not Available Zoloft 11/22 completed Not Available Not Available Not Available loratadin e 03/10 completed Not Available Not Available Not Available lisinopri l 11/22 completed Not Available Not Available Not Available Xanax 11/22 completed Not Available Not Available Not Available venlafaxi ne ER 150 mg tablet,ex tended release 24 hr 11/22 completed Not Available Not Available Not Available Zyrtec 10 mg capsule 05/17 completed Prescrib ed Elsewher e: Yes Loca tion: [facility] odify By: evelina Encounte r DateTime : 02/29/20 11:00:00 AM Not Available Not Available Not Available Suprep Bowel Prep Kit 17.5 gram-3.13 gram-1.6 gram oral solution 03/10 completed Not Available Not Available Not Available loratadin e 10 mg capsule 12/12 completed Prescrib ed Elsewher e: Yes Loca tion: [facility] odify By: evelina Encounte r DateTime : 05/17/20 09:45:00 AM Not Available Not Available Not Available Taytulla 1 mg-20 mcg (24)/75 mg (4) capsule take 1 capsule by oral route every day at the same time each day 09/23 completed Prescrib ed Elsewher e: No Locat ion: [facility] odify By: manuel ordonez DateTime : 06/18/20 03:02:34 PM Not Available Not Available Not Available TRUEplus Ketone strips 12/12 completed Not Available Not Available Not Available Aurovela 1.5/30 (21) 1.5 mg-30 mcg tablet TAKE 1 TABLET BY MOUTH EVERY DAY 04/19 completed Not Available Not Available Not Available OneTouch Delica Plus Lancet 33 gauge USE TO TEST BLOOD SUGAR FOUR TIMES DAILY 03/10 completed Not Available Not Available Not Available Flucelvax Quad 60 mcg (15 mcg x 4)/0.5 mL intramusc ular susp 03/10 completed Not Available Not Available Not Available Slynd 4 mg (28) tablet TAKE 1 TABLET BY MOUTH EVERY DAY 12/12 completed Not Available Not Available Not Available Gvoke HypoPen 2-Pack 1 mg/0.2 mL subcutane ous auto-inje ctor 12/12 completed Not Available Not Available Not Available Contour Plus Test Strip CHECK BLOOD SUGAR 4 TIMES DAILY NEEDED 08/03 completed Not Available Not Available Not Available Contour Plus Blue Meter USE DIRECTED 08/03 completed Not Available Not Available Not Available Vitals Date Recorded Body height Body mass index (BMI) Body weight Systolic And Diastolic Provider Name and Address Organization Details Last Updated DateTime 12/10/2023 153.04 cm 26.5 kg/m2 81184.15 g 129/75 mm[Hg] Gia Mendez [facility] 12/10/2023 09:12:51 Date Recorded Body height Body mass index (BMI) Body weight Systolic And Diastolic Provider Name and Address Organization Details Last Updated DateTime 12/12/2024 153.04 cm 24.6 kg/m2 34681.23 g 109/59 mm[Hg] Aliya Marshall [facility] 12/12/2024 09:36:08 Date Recorded Body height Body mass index (BMI) Body weight Systolic And Diastolic Provider Name and Address Organization Details Last Updated DateTime 05/12/2021 153.04 cm 28.8 kg/m2 73013.83 g 128/78 mm[Hg] Jacklyn Koroma [facility] 05/12/2021 14:32:27 Date Recorded Body height Body mass index (BMI) Body weight Systolic And Diastolic Provider Name and Address Organization Details Last Updated DateTime 08/03/2025 153.04 cm 23.2 kg/m2 08319.08 g 125/76 mm[Hg] Aliya Marshall [facility] 08/03/2025 16:05:31 Social History Question Answer Notes LastModified by Organizat ion Details LastModified Time Tobacco Smoking Status Never Smoker Jacklyn Koroma [facility] 05/12/2021 14:32:37 Do You Have An Advance Directive? No Information n ot available 05/12/2021 If You Are , What Was Your Level Of Alcohol Consumption Prior To ? None Information not available 05/12/2021 Are You Blind Or Do You Have Difficulty Seeing? No Information n ot available 03/10/2021 What Is Your Level Of Caffeine Consumption? Heavy Information not available 05/12/2021 How Much Tobacco Do You Chew? None Information not available 05/12/2021 In The 14 Days Before Symptom Onset, Have You Had Close Contact With A Laboratory-confirm ed COVID-19 While That Case Was Ill? No Information n ot available 05/12/2021 In The 14 Days Before Symptom Onset, Have You Had Close Contact With A Person Who Is Under Investigation For COVID-19 While That Person Was Ill? No Information not available 05/12/2021 Have You Been To An Area Known To Be High Risk For COVID-19? No Information not available 05/12/2021 Are You Deaf Or Do You Have Serious Difficulty Hearing? No Information not available 03/10/2021 What Type Of Diet Are You Following? REGULAR Information n ot available 03/10/2021 Which Illicit Or Recreational Drugs Have You Used? Marjuania Information not available 05/12/2021 What Is The Highest Grade Or Level Of School You Have Completed Or The Highest Degree You Have Received? [id number] Information not available 05/12/2021 Are There Any Guns Present In Your Home? No Information not available 05/12/2021 Do You Use Protection During Sex? Always Information not available 05/12/2021 Do You Use Your Seat Belt Or Car Seat Routinely? Yes Information not available 03/10/2021 Are You Sexually Active? Yes Information not available 05/12/2021 Do You Have Smoke And Carbon Monoxide Detectors In Your Home? Yes Information not available 03/10/2021 How Much Tobacco Do You Smoke? No Information not available 05/12/2021 Do You Use Sunscreen Routinely? Yes Information not available 03/10/2021 Has Tobacco Cessation Counseling Been Provided? No Information not available 05/12/2021 Have You Used IV Drugs? No [email or web address] Information not available 11/22/2020 Do You Have Difficulty Walking Or Climbing Stairs? No [email or web address] Information not available 12/10/2023 Sex: Unknown Functional Status Question Answer Note LastModified by Organizat ion Details LastModified Time Do you use any illicit or recreational drugs? No Information not available 05/12/2021 Do you or have you ever used any other forms of tobacco or nicotine? No Information not available 05/12/2021 What is your level of alcohol consumption? None [email or web address] Information not available 11/22/2020 Are you able to walk independently without assistance or assistive devices? [email or web address] Information not available 03/10/2021 What is your occupation? none Information not available 05/12/2021 Do you have difficulty dressing, bathing, grooming, or toileting? No [email or web address] Information not available 12/10/2023 What is your exercise level? Occasional [email or web address] Information not available 11/22/2020 Mental Status Question Answer Note LastModified by Organization D etails LastModified Time Do you feel stressed (tense, restless, nervous, or anxious, or unable to sleep at night)? [id number] Information not available 05/12/2021 Family History Relationship Description Onset Age of this Age Resolved Age Notes LastModified by Organization Details LastModified Time Maternal Grandmother Hypertensive disorder [email or web address] Not available 2019 12:04:27 Maternal Grandmother Asthma [email or web address] Not available 2019 12:04:51 Paternal Grandmother Hypertensive disorder [email or web address] Not available 2019 12:04:27 Paternal Grandmother Carcinoma in situ of colon [email or web address] Not available 2020 14:26:43 Maternal Aunt Asthma [email or web address] Not avail able 04/14/2020 12:04:51 Medical History Condition Response Allergies (Food, seasonal, environmental ) N Other N Breast Cancer N Drug/Latex Allergies/Reactions N Blood Transfusion N Dermatologic Disorders N Lung Disease N Defects or Inherited Disease N Breast Problem N Gestational Diabetes N Hematologic disorders N Anesthesia Complications N History of STI N Deep Vein Thrombosis N Polycystic ovary syndrome N Anxiety Disorder Y Autoimmune disease N Arthritis N Infertility N Polyps N Acid Reflux (GERD) N History of abnormal pap Y Cancer N Stroke N Varicosities N Neurologic/Epilepsy N Endometriosis N High Cholesterol N Headaches Y Fibromyalgia N Kidney Disease N Heart Problems N Kidney or Bladder Problems N Thyroid Problems N GI Problems N Eating Disorder N Anemia N Art (IVF or FET) N Psychiatric Illness N Ovarian Cancer N Diabetes Y Pulmonary (TB, Asthma) N Hepatitis/Liver Disease N Eczema N Urinary Tract Infection N Abuse/Domestic Violence N Asthma N Trauma/Violence N Depression/ depression Y Heart Disease N Pre-Eclampsia N Hypertension N Osteoporosis N Thrombophilias N Gynecological History Statement/Question Response Abnormal Pap Y Date of Last Mammogram Date of LMP Was last menstrual period normal N STIs/STDs N 11 Current Control Method IUD Are cycles usually normal N Date of Last Colonoscopy 10/15/2018 Sexually Active? Y Menses Monthly N Date of DEXA bone scan Date of Last Pap Smear 12/12/2024 Sexual Problems? N LMP Unknown Obstetrics History GPAL:G 0 P 0 0 0 0 Type Value Living 0 Total 0 Past Encounters Encounter ID Performer Location Encounter Start Date Encounter Closed Date Diagnosis/Indication Diagnosis SNOMED-CT Code Diagnosis ICD10 Code Diagnosis IMO Codes Diagnosis Note [id number] Tara Allan , [facility] [address] [address] 04/14/2020 11:51:57 04/14/2020 12:42:24 Gynecologic examination [id number] Z01.419 Z30.9 Take Calcium with Vitamin D 1200mg daily if not receiving in daily diet. It is strongly advised to have an annual flu shot and up can obtain at most pharmacies . If you have not had a TDap shot in the last 10 years you should obtain one as well. Discussed with patient & provided with informatio n regarding Gardisil vaccine to prevent the 4 strains for HPV that cause cervical cancer if under age 26. Encourage safe sexual practices, to use condoms and limit partners if not already in a monogamous relationsh ip. Do monthly self breast exams. Have mammogram yearly or every other year depending on family history. BRCA testing is now available for patients with strong genetic history of female cancer. If interested contact the office. Engage in daily exercise of low impact aerobic exercise 45-60 minutes 4-5 times weekly. Avoid tobacco and illicit drugs as well as using moderation with alcohol intake less than 1-2 8 oz beverages daily. This lifestyle behavior pattern will lead to less health conditions and longer life span. If BMI greater than 25 weight watchers or dietary consult advised. Patient received above instructio ns, and questions have been answered. If you have any questions please call or respond to this email. Patient was made aware of the patient portal and may obtain a paper copy of today's plan if desired. Declined std screen consider q3yr pap Eczema [id number] L30.9 Topical steroid ordered prn use. Will see Derm if gets bad. Daily moisturizi [place]. [id number] Tara Allan , [facility] [address] [address] 11/22/2020 12:42:35 11/22/2020 14:44:06 Contraception care management [id number] Z30.9 Patient with mirena iUD plus OCP's which is the only combo we have found to control chronic pelvic pain initiated by her menses and weeks leading up to it. Insertion of intrauterine contraceptive device [id number] Z30.430 She has been counseled on all of the r/b/a of placement of an intrauteri ne device that include but are not limited to uterine perforatio n, injury to cervix, vagina, bladder, and bowel.Risk s of bleeding due to injury or increased irregular bleeding due to progestin effect of the device. Risks of infection would be increased within the first 21 days of placement with concommita nt cervicitis . She understand s that the device will need to be removed in this instance due to increased risk of Pelvic inflammato ry disease. Patient is aware she is at higher risk for STD and if contracted she could lose her fertility. Pt is aware that if occurs that she should contact office immediatel y to rule out ectopic which could be life threatenin g. IUD will also need to be removed and this could cause miscarriag e. Patient also informed that in the event her strings are absent or embedded at the time of removal she may need to have the IUD surgically removed. She was informed of the above and properly consented. IUD placed w/o complicati on. Patient should return to office after next period to check for string placement. Patient to expect irregular bleeding but should be seen in the ED if bleeding increases to soaking a pad an hour for at least 2 hours. She verbalized understand ing. Removal of intrauterine device [id number] Z30.432 She states the symptoms are of new onset. Patient is here due to the approachin g due date or the nature of her IUD and wishes to have it removed. We discussed the timing of the replacemen t with the next bleed or the need to abstain if she no longer has regular cycles. She expressed understand ing. It was explained that she may have bleeding or spotting after the removal of the device today as well. If cannot see the strings of this device we will need to get an US image to make that the device is still in place and not in an unobtainab le position. She expressed understand ing of all the above instructio ns. Additional precaution mark measures were taken to minimize potential exposure to the Covid-19 virus during this patient s visit, including available hand cranberry bog supervisor upon arrive, temperatur e check and being asked a series of screening questions. All staff wore face coverings during this encounter, as well as provided additional cleaning and sanitizing of all surfaces, including countertop s, pens, chairs, door handles, light switches, etc, prior to and following the patient s visit. [id number] Tara Allan , [facility] [address] [address] 03/10/2021 13:58:09 03/10/2021 14:47:13 Intrauterine device check [id number] Z30.431 Patient is here today for 8wk Mirena IUD string check. She reports she is doing well after placement of this device. She is eating/dri nking/slee ping well. She has no adverse side effects from use of this device. She wishes to continue this therapy. She is also on BCP's & uses both methods to help control Chronic pelvic pain She voices that she has noted these two methods together have significan tly helped her mood & feels very stable & just so much better right now. She does voice that her doctors are going to put her on a new antipsycho tic & wanted to ensure her BCP didn't need to be changed to due decrease effectiven ess of taking this medication . I reminded her that she actually has two methods of BC and three if we include condoms. No need to change current regimen especially since tolerating it so well. If her other specialist s have any other concerns feel free to have them reach out to discuss. Time spent in visit is a total of 15 mins with at least 50% of visit consisting of counseling and review of plan of care. Additional precaution mark measures were taken to minimize potential exposure to the Covid-19 virus during this patient s visit, including available hand cranberry bog supervisor upon arrive, temperatur e check and being asked a series of screening questions. All staff wore face coverings during this encounter, as well as provided additional cleaning and sanitizing of all surfaces, including countertop s, pens, chairs, door handles, light switches, etc, prior to and following the patient s visit. [id number] Tara Allan , [facility] [address] [address] 04/19/2021 14:51:20 04/19/2021 15:43:26 Gynecologic examination [id number] Z01.419 Z30.9 Take Calcium with Vitamin D 1200mg daily if not receiving in daily diet. It is strongly advised to have an annual flu shot and up can obtain at most pharmacies . If you have not had a TDap shot in the last 10 years you should obtain one as well. Discussed with patient & provided with informatio n regarding Gardisil vaccine to prevent the 4 strains for HPV that cause cervical cancer if under age 26. Encourage safe sexual practices, to use condoms and limit partners if not already in a monogamous relationsh ip. Do monthly self breast exams. Have mammogram yearly or every other year depending on family history. BRCA testing is now available for patients with strong genetic history of female cancer. If interested contact the office. Engage in daily exercise of low impact aerobic exercise 45-60 minutes 4-5 times weekly. Avoid tobacco and illicit drugs as well as using moderation with alcohol intake less than 1-2 8 oz beverages daily. This lifestyle behavior pattern will lead to less health conditions and longer life span. If BMI greater than 25 weight watchers or dietary consult advised. Patient received above instructio ns, and questions have been answered. If you have any questions please call or respond to this email. Patient was made aware of the patient portal and may obtain a paper copy of today's plan if desired. Declined std screen Pap/hpv wnl 04/2020IUD Shena present Pain in pelvis [id number] R10.2 Pain in area of right adnexal on exam.Corre lates with patient complaints .Declines need std screening Patient is to contact office or go to nearest ED/Urgent care if fever >/= 100.1, pain, excessive bleeding, unusual drainage or swelling in area of concern; or experienci ng worsening sx's or new onset of concerning sx's. Understand ing verbalized . [place]. [id number] Tim Ayers MD [place] [address] [address] 04/28/2021 15:41:58 04/28/2021 16:19:33 Pain in pelvis [id number] R10.[id number] [facility] [address],[facility] [place] [address] 05/12/2021 14:26:32 05/13/2021 14:08:14 Chronic pelvic pain of female 348976529 R10.2 US was reviewed.W NLWe agreed on trial of pelvic floor therapy for right sided lower pelvic pain that is questionab ly more muscular in nature.RTO x 3mos or prn. Time spent in visit is a total of 15 mins with at least 50% of visit consisting of counseling and review of plan of care.Addit ional precaution mark measures were taken to minimize potential exposure to the Covid-19 virus during this patient s visit, including available hand cranberry bog supervisor upon arrive, temperatur e check and being asked a series of screening questions. All staff wore face coverings during this encounter, as well as provided additional cleaning and sanitizing of all surfaces, including countertop s, pens, chairs, door handles, light switches, etc, prior to and following the patient s visit. [id number] Abeba Carrillo [facility] [place] [address] [address] 12/10/2023 09:03:43 12/10/2023 12:47:45 Gynecologic examination [id number] Z01.419 WWEpap updateddec lined STI screenrout ine labs/PCP Take Calcium with Vitamin D daily if not receiving in daily diet.It is strongly advised to have an annual flu shot and up can obtain at most pharmacies . If you have not had a TDap shot in the last 10 years you should obtain one as well. Discussed with patient & provided with informatio n regarding Gardisil vaccine to prevent the 4 strains for HPV that cause cervical cancer if under age 26. Encourage safe sexual practices, to use condoms and limit partners if not already in a monogamous relationsh ip.Do monthly self breast exams. Engage in daily exercise of low impact aerobic exercise 45-60 minutes 4-5 times weekly. Avoid tobacco and illicit drugs. This lifestyle behavior pattern will lead to less health conditions and longer life span. If BMI greater than 25 dietary consult advised. Patient received above instructio ns, and questions have been answered. If you have any questions please call or respond to this email. Patient was made aware of the patient portal and may obtain a paper copy of today's plan if desired. Contracept ion care management [id number] Z30.9 currently using Mirena IUD in combinatio n with OCP (OCP has helped with dysmenorrh ea)has migraines with auradiscus sed alternativ e optionsopt s to switch to POP, wants to keep Mirena IUD in place as wellrx sent, r/b/a reviewedme d check in 3-4 monthsenco uraged to notify care team with change Dysmenorrhea [id number] N 94.6 [id number] KATIE Winchester [place] [address] [address] 12/12/2024 09:22:39 12/12/2024 11:23:30 Gynecologic examination [id number] Z01.419 WWEBC - Mirena IUD, inserted 1Pa p - done todaySTI screen - declinedRo utine labs - PCPRTC in 1 yr or sooner if needed It is strongly advised to have an annual flu shot and up can obtain at most pharmacies . If you have not had a TDap shot in the last 10 years you should obtain one as well. Discussed with patient & provided with informatio n regarding the HPV vaccine if applicable . Encourage safe sexual practices, to use condoms and limit partners if not already in a monogamous relationsh ip. Do monthly self breast exams. BRCA testing is now available for patients with strong genetic history of female cancer. If interested contact the office. Engage in regular exercise. Avoid tobacco and illicit drugs. This lifestyle behavior pattern will lead to less health conditions and longer life span. If BMI greater than 25 dietary consult advised. Questions answered. [id number] Tim Ayers MD [place] [address] [address] 01/13/2025 09:26:08 01/13/2025 10:08:35 Mechanical complication of intrauterine contraceptive device [id number] T83.39XA [id number] Tim Ayers MD [place] [address] [address] 08/03/2025 15:54:59 08/03/2025 17:06:50 Disorder of intrauterine contraceptive device [id number] T83.32XD [id number] 30-year-ol d female with malpositio barry IUD. We have agreed to perform hysterosco pic removal of foreign body. She understand s the risks, benefits, and alternativ es. She has completed the informed consent process and is ready to proceed. I spent over 20 minutes on her care in total. Health Concerns Section Related Observation LastModified by Organization Detai ls LastModified Time None Recorded Concern Status LastModified by Organization Details LastModified Time None Recorded Advance Directives Directive N: Payers Insurance Date Sequence Insurance Name Policy Number Policy Hernandez Covered Member ID Hernandez Member ID Guarantor Name 01/14/2021 1 [facility] [id number] Cam Hernandez [id number] Rosa Isela Washington 08/16/2025 1 [facility] (MEDICAID HMO) [id number] 03 Rosa Isela Washington [id number] Rosa Isela Washington 04/19/2021 2 [facility] [place] [facility] Rosa Isela Washington [id number] Rosa Isela Washington Notes Date Note Type Note Provider Name and Address Organization Details Recorded Time 021 text/ht ml ROS as noted in the HPI Here for TVUS Follow up for pelivc pain Tara Allan, KATIE- [address], [place], [address], [facility] 05/17/2021 15:49:06 024 text/ht ml Annual GYNReported by PatientGenitourinary symptomsFor menstrual cycle, patient reportsnormal menses. For urinary symptoms, patient reportsno hematuriaandno incontinence. For vulva, patient reportsno genital lesion. For vagina, patient reportsnormal vaginal discharge.Breast symptomsFor breast, patient reportsno breast pain,no breast lump, andno nipple discharge.ContraceptionFor current contraception, patient reportsoral contraceptivesandintrauterine device (iud).Endocrine symptomsFor sexual complaints, patient reportsno sexual complaints,no pain during intercourse, andnormal libido. For menopausal symptoms, patient reportsno menopausal symptomsandnormal vaginal lubrication.Psychological symptomsFor psychological symptoms, patient reportsno depression,no anxiety, andno pmdd.Preventative measuresFor preventive measures, patient reportsencourage self breast examination,encourage regular exercise,encourage no tobacco use, andencourage regular mammograms starting age 40.no h/o of abnormal papslast pap 2019 - normalmirena IUD for BC, inserted 11/2020. Also taking OCPs which has helped with pelvic pain/dysmenorrhea prior and during her periods.medical hx: Type 1 Diabetes, anxiety/depression, on lisinopril for kidney protection per pt, and migraines with aura (about 4 times per month)denies h/o DVT/PE, HTN, Stroke/UT, cancer, or liver diseaseIUD strings unable to be seen since insertion per pt, but has had u/s done that shows normal appearing IUD placement KATIE Winchester [address], [place], [address], [facility] 12/10/2023 12:16:59 025 text/ht ml Annual GYNReported by PatientGenitourinary symptomsFor menstrual cycle, patient reportsnormal menses. For urinary symptoms, patient reportsno hematuriaandno incontinence. For vulva, patient reportsno genital lesion. For vagina, patient reportsnormal vaginal discharge.Breast symptomsFor breast, patient reportsno breast pain,no breast lump, andno nipple discharge.ContraceptionFor current contraception, patient reportssatisfied with current contraceptionandintrauterine device (iud).Endocrine symptomsFor sexual complaints, patient reportsno sexual complaints,no pain during intercourse, andnormal libido. For menopausal symptoms, patient reportsno menopausal symptomsandnormal vaginal lubrication.Psychological symptomsFor psychological symptoms, patient reportsno depression,no anxiety, andno pmdd.Preventative measuresFor preventive measures, patient reportsencourage self breast examination,encourage regular exercise,encourage no tobacco use, andencourage regular mammograms starting age 40.29yo [facility] - Mirena IUD, inserted 1last pap 12/10/2023 : ascus, HPV (-) has been experiencing increased cramping for 5-7 days each month. No bleeding. IUD strings know to be non visible, had a pelvic u/s done a few years ago at another office that showed normal appearing IUD placement per pt KATIE Winchester [address], [place], [address], [facility] 12/12/2024 11:09:11 025 text/ht ml This patient is a 30-year-old female with a malpositioned IUD. She would like the IUD removed. Patient has significant anxiety. She would like hysteroscopic removal of IUD under sedation. We have agreed to perform the hysteroscopic removal of IUD/foreign body in the operating room. The patient understands the procedure. The procedure was described to the patient in great detail. the patient also understands the risks. The risks were also explained in detail. She understands that injuries May occur during surgery. She understands these injuries can result in hospitalization, more surgery, and severe illness. She understands there is risk of hemorrhage and infection. Tim Ayers MD [address], [place], [address], [facility] 08/03/2025 17:05:32 OBGyn Episode No OBEpisode recorded.
--- OUTSIDE RECORDS SUMMARY | 2025-08-17 12:34 | XMS_ITS | Data Portability ---
Author Organization [place] - Formerly [facility] MEDICAL Address [address] [place] [address] Assessment No assessment recorded. Plan of Treatment Reminders Order Date Submit Date Provider Last Modified By Organization Details Last Modified Time Details Appointments ROUTINE 30 2024 10:00A M YOLANDA BROWNE Not available Not available Not available Lab biopsy, tissue 2024 025 [facility], [address] [place], [address], 05/03/2025 12:43:53 HbA1c (hemoglob in A1c), blood 2024 025 [facility], [address] [place], [address], 04/10/2025 07:28:51 CMP, serum or plasma 2024 025 [facility], [address] [place], [address], 04/10/2025 07:28:50 lipid panel, serum 2024 025 [facility], [address] [place], [address], 04/10/2025 07:28:49 CBC w/ auto diff 2024 025 [facility], [address] [place], [address], 04/10/2025 07:28:50 TSH + free T4, serum 2024 [place] [facility] [place], [address] [place], [address], 04/10/2025 07:28:49 Referral None recorded. Procedures None recorded. Surgeries None recorded. Imaging None recorded. Medication Orders loratadin e 10 mg tablet 2024 [facility]79653, [address] [place], [place], [id number], 04/09/2025 10:58:03 Humalog U-100 Insulin 100 unit/mL subcutane ous solution 2024 [facility] #22169, [address] [place], [place], [id number], 04/09/2025 10:58:01 lisinopri l 20 mg tablet 2024 [facility] #65934, [address] [place], [place], [id number], 04/09/2025 10:58:04 Baqsimi 3 mg/actuat ion nasal spray 2024 025 [facility] #29377, [address] [place], [place], [id number], 04/09/2025 10:58:02 loratadin e 10 mg tablet 2024 025 [facility] #41690, [address] [place], [place], [id number], 03/16/2025 12:50:40 lisinopri l 20 mg tablet 2024 025 [facility] #91782, [address] [place], [place], [id number], 03/16/2025 12:50:42 OneTouch Verio test strips 2024 025 [facility] #86520, [address] [place], [place], [id number], 03/16/2025 12:50:37 Humalog U-100 Insulin 100 unit/mL subcutane ous solution 2024 025 [facility] #92352, [address] [place], [place], [id number], 03/16/2025 12:50:38 Patient TargetsNo targets recorded. Patient Instructions Encounter Date Encounter Id Patient Instructions Last Modified By Organization Details Last Modified Time 04/13/2025 [id number] Skin Cyst: Care Instructions [email or web address] Not available 04/13/2025 16:27:43 Reason for Referral None Reported. Results Created Date Observation Date Name Description Value Unit Range Abnormal Flag Note LastModifiedBy Organization Detail LastModifiedTime 04/09/2004/10/2025 LIPID PANEL , STAND SUAD cholesterol, total 186 mg/dL <200 normal Not Available [facility] [address], [address], 04/10/2025 07:28:49 04/09/2004/10/2025 LIPID PANEL , STAND SUAD HDL cholesterol 66 mg/dL > or = 50 normal Not Available [facility] [address], [address], 04/10/2025 07:28:49 04/09/2004/10/2025 LIPID PANEL , STAND SUAD triglyceride s 201 mg/dL <150 high If a non-f astin g speci men was colle cted, consi delia repea t trigl yceri de testi ng on a fasti ng speci men if clini nikkie indic ated. Esequiel padilla et al. J. of Clin. Lipid ol. 2015; 9:129 -169. Not Available [facility] [address] [place], [place] [address], [address], 04/10/2025 07:28:49 04/09/2004/10/2025 LIPID PANEL , STAND SUAD LDL-choleste rol 90 mg/dL _(sachin c) normal Refer ence range : <100 Ivan able range <100 mg/dL for prima ry preve ntion ; <70 mg/dL for patie nts with CHD or diabe tic patie nts with > or = 2 CHD risk facto rs. LDL-C is now calcu lated using the Alisha n-Hop kins calcu joselinloly n, which is a valid ated novel metho d provi ding stephanie r accur acy than the Fried slime equat ion in the estim ation of LDL-C . Alisha maldonado SS et al. BRIAN. 2013; 310(1 9): 2061- 2068 (http ://ed ucati on.Qu estInstallFree. com/f aq/FA Q164) Not Available [facility] [address] [address] [place], [address], 04/10/2025 07:28:49 04/09/2004/10/2025 LIPID PANEL , STAND SUAD chol/HDLC ratio 2.8 (calc ) <5.0 normal Not Available [facility] [address] [place], [address], 04/10/2025 07:28:49 04/09/2004/10/2025 LIPID PANEL , STAND SUAD non HDL cholesterol 120 mg/dL _(sachin c) <130 normal For patie nts with diabe edwin plus 1 major ASCVD risk facto r, treat ing to a non-H DL-C goal of <100 mg/dL (LDL- C of <70 mg/dL ) is dori armentao n. Not Available [facility] [address] [place], [address], 04/10/2025 07:28:49 04/09/2004/10/2025 TSH+F REE T4 TSH 0.92 mIU/L normal Refer ence Range > or = 20 Years 0.40- 4.50 Pregn josh Range s First trime ster 0.26- 2.66 Secon d trime ster 0.55- 2.73 Third trime ster 0.43- 2.91 Not Available [address], [address], 04/10/2025 07:28:49 04/09/2004/10/2025 TSH+F REE T4 T4, free 1.1 NG/dL 0.8-1. 8 normal Not Available [address], [address], 04/10/2025 07:28:49 04/09/2004/10/2025 COMPR EHENS ALEKSANDER METAB OLIC PANEL glucose 232 mg/dL 65-99 high Fasti ng refer ence inter claudia For someo ne witho ut known diabe edwin, a gluco se value >125 mg/dL indic ates that they may have diabe edwin and this shoul d be confi rmed with a follo w-up test. Not Available [address], [address], 04/10/2025 07:28:50 04/09/2004/10/2025 COMPR EHENS ALEKSANDER METAB OLIC PANEL urea nitrogen (BUN) 10 mg/dL 7-25 normal Not Available [address], [address], 04/10/2025 07:28:50 04/09/20 25 04/10/2025 COMPR EHENS ALEKSANDER METAB OLIC PANEL creatinine 0.75 mg/dL 0.50-0 .97 normal Not Available [address], [address], 04/10/2025 07:28:50 04/09/20 25 04/10/2025 COMPR EHENS ALEKSANDER METAB OLIC PANEL eGFR 110 mL/mi n/1.7 3m2 > or = 60 normal Not Available [address], [address], 04/10/2025 07:28:50 04/09/20 25 04/10/2025 COMPR EHENS ALEKSANDER METAB OLIC PANEL BUN/creatini ne ratio SEE NOTE: (calc ) 6-22 Not Repor luz: BUN and Creat inine are withi n refer ence range . Not Available [address], [address], 04/10/2025 07:28:50 04/09/20 25 04/10/2025 COMPR EHENS ALEKSANDER METAB OLIC PANEL sodium 137 mmol/ L 135-14 6 normal Not Available [address], [address], 04/10/2025 07:28:50 04/09/20 25 04/10/2025 COMPR EHENS ALEKSANDER METAB OLIC PANEL potassium 4.5 mmol/ L 3.5-5. 3 normal Not Available [address], [address], 04/10/2025 07:28:50 04/09/20 25 04/10/2025 COMPR EHENS ALEKSANDER METAB OLIC PANEL chloride 101 mmol/ L 98-110 normal Not Available [address], [address], 04/10/2025 07:28:50 04/09/20 25 04/10/2025 COMPR EHENS ALEKSANDER METAB OLIC PANEL carbon dioxide 25 mmol/ L 20-32 normal Not Available [address], [address], 04/10/2025 07:28:50 04/09/20 25 04/10/2025 COMPR EHENS ALEKSANDER METAB OLIC PANEL calcium 10.2 mg/dL 8.6-10 .2 normal Not Available [address], [address], 04/10/2025 07:28:50 04/09/20 25 04/10/2025 COMPR EHENS ALEKSANDER METAB OLIC PANEL protein, total 7.1 g/dL 6.1-8. 1 normal Not Available [address], [address], 04/10/2025 07:28:50 04/09/20 25 04/10/2025 COMPR EHENS ALEKSANDER METAB OLIC PANEL albumin 5.0 g/dL 3.6-5. 1 normal Not Available [address], [address], 04/10/2025 07:28:50 04/09/20 25 04/10/2025 COMPR EHENS ALEKSANDER METAB OLIC PANEL globulin 2.1 g/dL_ (calc ) 1.9-3. 7 normal Not Available [address], [address], 04/10/2025 07:28:50 04/09/20 25 04/10/2025 COMPR EHENS ALEKSANDER METAB OLIC PANEL albumin/glob ulin ratio 2.4 (calc ) 1.0-2. 5 normal Not Available [address], [address], 04/10/2025 07:28:50 04/09/2004/10/2025 COMPR EHENS ALEKSANDER METAB OLIC PANEL bilirubin, total 0.4 mg/dL 0.2-1. 2 normal Not Available [address], [address], 04/10/2025 07:28:50 04/09/20 25 04/10/2025 COMPR EHENS ALEKSANDER METAB OLIC PANEL alkaline phosphatase 100 U/L 31-125 normal Not Available [address], [address], 04/10/2025 07:28:50 04/09/20 25 04/10/2025 COMPR EHENS ALEKSANDER METAB OLIC PANEL AST 15 U/L 10-30 normal Not Available [address], [address], 04/10/2025 07:28:50 04/09/20 25 04/10/2025 COMPR EHENS ALEKSANDER METAB OLIC PANEL ALT 10 U/L 6-29 normal Not Available [address], [address], 04/10/2025 07:28:50 04/09/20 25 04/10/2025 CBC (INCL UDES DIFF/ PLT) white blood cell count 6.7 thous and/u L 3.8-10 .8 normal Not Available [address], [address], 04/10/2025 07:28:50 04/09/20 25 04/10/2025 CBC (INCL UDES DIFF/ PLT) red blood cell count 4.22 dina on/uL 3.80-5 .10 normal Not Available [address], [address], 04/10/2025 07:28:50 04/09/20 25 04/10/2025 CBC (INCL UDES DIFF/ PLT) hemoglobin 13.8 g/dL 11.7-1 5.5 normal Not Available [address], [address], 04/10/2025 07:28:50 04/09/20 25 04/10/2025 CBC (INCL UDES DIFF/ PLT) hematocrit 43.7 % 35.0-4 5.0 normal Not Available [address], [address], 04/10/2025 07:28:50 04/09/20 25 04/10/2025 CBC (INCL UDES DIFF/ PLT) MCV 103.6 fL 80.0-1 00.0 high Not Available [address] [place], [address], 04/10/2025 07:28:50 04/09/2004/10/2025 CBC (INCL UDES DIFF/ PLT) MCH 32.7 pg 27.0-3 3.0 normal Not Available [facility] [address], [address], 04/10/2025 07:28:50 04/09/20 25 04/10/2025 CBC (INCL UDES DIFF/ PLT) MCHC 31.6 g/dL 32.0-3 6.0 low For adult s, a sligh t decre ase in the calcu lated MCHC value (in the range of 30 to 32 g/dL) is most likel y not clini nikkie signi fican t; mala er, it shoul d be inter prete d with cauti on in [facility] n with other red cell ed eters and the patie nt's clini sachin condi tion. Not Available [facility] [address], [address], 04/10/2025 07:28:50 04/09/2004/10/2025 CBC (INCL UDES DIFF/ PLT) RDW 12.7 % 11.0-1 5.0 normal Not Available [facility] [address], [address], 04/10/2025 07:28:50 04/09/2004/10/2025 CBC (INCL UDES DIFF/ PLT) platelet count 271 thous and/u L 140-40 0 normal Not Available [facility] [address], [address], 04/10/2025 07:28:50 04/09/2004/10/2025 CBC (INCL UDES DIFF/ PLT) MPV 9.6 fL 7.5-12 .5 normal Not Available [facility] [address], [address], 04/10/2025 07:28:50 04/09/20 25 04/10/2025 CBC (INCL UDES DIFF/ PLT) absolute neutrophils 4074 cells /uL 1500-7 800 normal Not Available [address], [address], 04/10/2025 07:28:50 04/09/20 25 04/10/2025 CBC (INCL UDES DIFF/ PLT) absolute lymphocytes 1970 cells /uL 850-39 00 normal Not Available [address], [address], 04/10/2025 07:28:50 04/09/20 25 04/10/2025 CBC (INCL UDES DIFF/ PLT) absolute monocytes 462 cells /uL 200-95 0 normal Not Available [address], [address], 04/10/2025 07:28:50 04/09/20 25 04/10/2025 CBC (INCL UDES DIFF/ PLT) absolute eosinophils 161 cells /uL 15-500 normal Not Available [address], [address], 04/10/2025 07:28:50 04/09/20 25 04/10/2025 CBC (INCL UDES DIFF/ PLT) absolute basophils 34 cells /uL 0-200 normal Not Available [address], [address], 04/10/2025 07:28:50 04/09/20 25 04/10/2025 CBC (INCL UDES DIFF/ PLT) neutrophils 60.8 % normal Not Available [address], [address], 04/10/2025 07:28:50 04/09/20 25 04/10/2025 CBC (INCL UDES DIFF/ PLT) lymphocytes 29.4 % normal Not Available [address], [address], 04/10/2025 07:28:50 04/09/20 25 04/10/2025 CBC (INCL UDES DIFF/ PLT) monocytes 6.9 % normal Not Available [address] [address] [place], [address], 04/10/2025 07:28:50 04/09/20 25 04/10/2025 CBC (INCL UDES DIFF/ PLT) eosinophils 2.4 % normal Not Available [facility] [address] [address] [place], [address], 04/10/2025 07:28:50 04/09/20 25 04/10/2025 CBC (INCL UDES DIFF/ PLT) basophils 0.5 % normal Not Available [address] [address] [place], [address], 04/10/2025 07:28:50 04/09/20 25 04/10/2025 HEMOG LOBIN A1C hemoglobin A1C 6.9 % <5.7 high For someo ne witho ut known diabe edwin, a hemog lobin A1c value of 6.5% or great er indic ates that they may have diabe edwin and this shoul d be confi rmed with a follo w-up test. For someo ne with known diabe edwin, a value <7% indic ates that their diabe edwin is well contr olled and a value great er than or equal to 7% indic ates subop timal contr ol. A1c targe ts shoul d be indiv idual ized based on durat ion of diabe edwin, age, comor bid condi tions , and other consi derat ions. Curre ntly, no conse nsus exist s regar ding use of hemog lobin A1c for diagn osis of diabe dewin for child ruddy. Not Available [address] [address] [place], [address], 04/10/2025 07:28:51 04/28/20 25 05/03/2025 TISSU E PATHO LOGY clinical information Dermo id cyst Not Available [address] [address] [place], [address], 05/03/2025 12:43:53 04/28/2005/03/2025 TISSU E PATHO LOGY pathologist Michelle elliott M.D., [facility], Board Certi fied in [facility], [facility] and Clini sachin Patho logy (elec troni c signa ture) Patho logis t Relea se Date/ Time: 05/03 11:09 AM Not Available [address] [address] [place], [address], 05/03/2025 12:43:53 04/28/20 25 05/03/2025 TISSU E PATHO LOGY A source Scalp , biops y Not Available [address] [address] [place], [address], 05/03/2025 12:43:53 04/28/2005/03/2025 TISSU E PATHO LOGY A gross description Speci men is recei deann in 10% neutr al buffe red forma ronnie, label ed with multi ple patie nt ident ifier s and consi sts of one piece from a soft tissu e with calci fied cysti c struc ture measu ring 0.4 x 0.4 x 0.4 cm, irreg ular in shape and yello w-whi te in color , The liz ns are inked green . The speci men is entir chin submi tted in one casse tte(s ). Gross exam( s) perfo rmed at: [facility] Sunny D[place] [address] [place] [address] [place] [address] Labor atory Direc tor: GENEVIEVE Correa MD Not Available [facility] [address] [address] [place], [address], 05/03/2025 12:43:53 07/1505/03/2025 TISSU E PATHO LOGY A diagnosis Pilom atrix lexx, ossif ied. Not Available [facility] [address] [place], [address], 05/03/2025 12:43:53 Result Notes None recorded. Problems Name Problem SNOMED Code Status Onset Date Resolution Date Notes Provider Name and Address Organization Details Recorded Time Type 1 diabetes mellitus 18557201 Active 2024 Kandy Zimmer APRN [address] [place], [address], [facility] [employer] 12:38:07 Gastroesophage al reflux disease without esophagitis 788208994 Active 2024 Kandy Zimmer APRN [address] [place], [address], [facility] [employer] 12:39:18 Irritable bowel syndrome 91328135 Active 2024 Kandy Zimmer APRN [address] [place], [address], [facility] [employer] 12:39:30 Problem Notes None recorded. Procedures Surgical History Date Name Laterality Status Provider Name and Address Organization Details Recorded Time 5 Punch Biopsy completed YOLANDA BROWNE NP [address] [place], [address], [facility] [employer] 04/28/2025 13:01:09 5 Punch Biopsy completed YOLANDA BROWNE NP [address] [place], [address], [facility] [employer], [employer] 04/13/2025 16:26:26 5 Skin Tag Removal completed YOLANDA BROWNE NP [address] [place], [address], [facility] [employer], [employer] 04/13/2025 16:26:54 extraction of wisdom tooth completed Kandy Zimmer APRN [address] [place], [address], [facility] [employer], [employer] 03/16/2025 12:38:53 Imaging Results None recorded. Procedure Notes None recorded. Medical Equipment None Reported. Allergies Allergen ID Allergen Name Allergen Category Reaction Reaction Severity Criticality Documentation Date Start Date Code Code System Note Provider Name and Address Organization Details Recorded Time 81210 Suprax medicatio n Not available Not available Not available 03/16/2025 9 RxNorm shana Zimmer FILTER TANK OPERATOR [address] [place], [address] , [facility] [employer] 12:19:32 [address] clindamyc in Not available Not available Not available Not available 03/16/2025 2582 RxNorm Sugar Lockhart, NEUROLOGICAL SURGERY TEACHER null, [facility] [employer] 11:49:33 Medications Name Sig Start Date Stop Date Status Note LastModified by Organization Details LastModified Time Prescriptio n - Prior Authorizati on Request active Not Available Not Available N ot Available lisinopril 20 mg tablet Take 1 tablet every day by oral route for 30 days. 2024 active Not Available Not Available Not Avai lable lisinopril 10 mg tablet TAKE 1 TABLET BY MOUTH DAILY 03/16 completed Not Available Not Available Not Available insulin lispro (U-100) 100 unit/mL subcutaneou s solution USE 80-100 UNITS DAILY VIA INSULIN PUMP 2024 active Not Available Not Available Not Avai lable loratadine 10 mg tablet Take 1 tablet every day by oral route as needed for 30 days, for seasonal alleriges . 2024 active Not Available Not Available Not Avai lable rosuvastati n 20 mg tablet TAKE 1 TABLET BY MOUTH DAILY 03/16 completed Not Available Not Available Not Available Claritin 03/16 completed Not Available Not Available Not Available Slynd 4 mg (28) tablet TAKE 1 TABLET BY MOUTH EVERY DAY 03/16 completed Not Available Not Available Not Available Baqsimi 3 mg/actuatio n nasal spray Take 1 spray as needed by nasal route. active Not Available Not Available No t Available Contour Plus Test Strip CHECK BLOOD SUGAR 4 TIMES DAILY NEEDED active Not Available Not Available No t Available Contour Plus Blue Meter USE DIRECTED active Not Available Not Available No t Available Vitals Date Recorded Body height Body mass index (BMI) Body weight Heart rate Body temperature Oxygen saturation Oxygen saturation in Arterial blood by Pulse oximetry Systolic And Diastolic Provider Name and Address Organization Details Last Updated DateTime 5 153.92 cm 23.5 kg/m2 61600.8 6 g 123 /min 98.4 [degF] 98 % 98 % 142/72 mm[Hg] Sugar Lockhart [facility] [employer] [facility] 5 11:48:28 Date Recorded Body height Body mass index (BMI) Body weight Heart rate Oxygen saturation Oxygen saturation in Arterial blood by Pulse oximetry Systolic And Diastolic Provider Name and Address Organization Details Last Updated DateTime 5 153.92 cm 22.7 kg/m2 02680.3 4 g 100 /min 99 % 99 % 102/62 mm[Hg] Angélica Aguilar [facility] [employer] [facility] 5 10:18:46 Date Recorded Body height Body mass index (BMI) Body weight Heart rate Oxygen saturation Oxygen saturation in Arterial blood by Pulse oximetry Systolic And Diastolic Provider Name and Address Organization Details Last Updated DateTime 5 153.92 cm 22.6 kg/m2 58430.9 g 92 /min 98 % 98 % 110/70 mm[Hg] Angélica Aguilar [facility] [employer] [facility] 5 11:49:31 Date Recorded Body height Body mass index (BMI) Body weight Oxygen saturation Oxygen saturation in Arterial blood by Pulse oximetry Heart rate Systolic And Diastolic Provider Name and Address Organization Details Last Updated DateTime 5 153.92 cm 22.7 kg/m2 79989.7 7 g 99 % 99 % 111 /min 112/60 mm[Hg] JONNY RILEY NEUROLOGICAL SURGERY TEACHER [facility] [employer] [facility] 5 11:33:15 Social History Question Answer Notes LastModified by Organizat ion Details LastModified Time Tobacco Smoking Status Never Smoker Kandy Zimmer FILTER TANK OPERATOR [address] [place], [address], [facility] [employer] [facility] 03/16/2025 12:42:19 In The 14 Days Before Symptom Onset, Have You Had Close Contact With A Laboratory-confirm ed COVID-19 While That Case Was Ill? No Information n ot available 04/09/2025 In The 14 Days Before Symptom Onset, Have You Had Close Contact With A Person Who Is Under Investigation For COVID-19 While That Person Was Ill? No [email or web address] Information not available 04/09/2025 Have You Been To An Area Known To Be High Risk For COVID-19? No [email or web address] Information not available 04/09/2025 Are You Deaf Or Do You Have Serious Difficulty Hearing? No [email or web address] Information not available 04/09/2025 What Is The Highest Grade Or Level Of School You Have Completed Or The Highest Degree You Have Received? [id number] Information not available 03/16/2025 What Was The Date Of Your Most Recent Tobacco Screening? 03/16/2025 Information not available 03/16/2025 What Is Your Relationship Status? Single Information not available 03/16/2025 Are You Sexually Active? No Information not available 03/16/2025 Do You Have Smoke And Carbon Monoxide Detectors In Your Home? Yes Information not available 03/16/2025 Sex: Female Functional Status Question Answer Note LastModified by Organizat ion Details LastModified Time Do you use any illicit or recreational drugs? No Information not available 03/16/2025 Do you or have you ever used any other forms of tobacco or nicotine? No Information not available 03/16/2025 What is your level of alcohol consumption? None Information not available 03/16/2025 Are you currently employed? No Information not available 03/16/2025 Do you have transportation difficulties? No [email or web address] Information not available 04/09/2025 Do you have difficulty doing errands alone? No Information not available 04/09/2025 Are you able to care for yourself independently? Yes [email or web address] Information not available 04/09/2025 Do you have difficulty dressing, bathing, grooming, or toileting? No [email or web address] Information not available 04/09/2025 Mental Status Question Answer Note LastModified by Organization D etails LastModified Time Do you have difficulty concentrating, remembering or making decisions? No [email or web address] Information no t available 04/09/2025 Family History Relationship Description Onset Age of this Age Resolved Age Notes LastModified by Organization Details LastModified Time Paternal Grandmother Malignant neoplasm of colon Not available 2024 12:43:59 Mother Neoplasm of kidney Not available 2024 12:44:06 Medical History Condition Response Coronary Artery Disease N Heart Problems N Other N Hyperthyroidism N Kidney or Bladder Problems Y GI Problems Y Hypothyroidism N Depression N COPD N Defects or Inherited Disease N ILLICIT DRUG USE N Anemia N Headaches/Migraines N Mental Illness N Diabetes Y Muscle, Joint, or Bone Problems N Obesity N Arthritis N Infertility N Tuberculosis N AIDS/HIV N Congestive Heart Failure (CHF) N Cancer N Abuse/Domestic Violence N Asthma N Allergies N Reflux/GERD Y High Cholesterol N Hepatitis N Fibromyalgia N Hypertension N Chicken Pox N Gynecological History Statement/Question Response Date of LMP 01/19/2025 Menses Monthly N Date of Last Pap Smear Age at Menarche 12 Current Control Method IUD LMP Approximate Desired Control Method IUD Obstetrics History GPAL:G 0 P 0 0 0 0 Immunizations Vaccine Type Date Status Note Provider Nam e and Address Organization Details Recorded Time Hep B, adolescent or pediatric 5 completed Not Available [facility] 04/28/2025 11:27:09 Hep B, adolescent or pediatric 5 completed Not Available [facility] 04/28/2025 11:27:09 DTaP, 5 pertussis antigens 5 completed Not Available [facility] 04/28/2025 11:27:09 Hib (PRP-T) 5 completed Not Available [facility] 04/28/2025 11:27:09 IPV 5 completed Not Available [facility] 04/28/2025 11:27:09 Hib (PRP-T) 5 completed Not Available [facility] 04/28/2025 11:27:09 IPV 5 completed Not Available [facility] 04/28/2025 11:27:09 DTaP, 5 pertussis antigens 5 completed Not Available [facility] 04/28/2025 11:27:09 DTaP, 5 pertussis antigens 5 completed Not Available [facility] 04/28/2025 11:27:09 IPV 5 completed Not Available [facility] 04/28/2025 11:27:09 Hib (PRP-T) 5 completed Not Available [facility] 04/28/2025 11:27:09 Hep B, adolescent or pediatric 6 completed Not Available [facility] 04/28/2025 11:27:09 Hib (PRP-T) 6 completed Not Available [facility] 04/28/2025 11:27:09 MMR 6 completed Not Available [facility] 04/28/2025 11:27:09 DTaP, 5 pertussis antigens 6 completed Not Available [facility] 04/28/2025 11:27:09 varicella 7 completed Not Available [facility] 04/28/2025 11:27:09 IPV 9 completed Not Available [facility] 04/28/2025 11:27:09 MMR 9 completed Not Available [facility] 04/28/2025 11:27:09 DTaP, 5 pertussis antigens 9 completed Not Available [facility] 04/28/2025 11:27:09 Influenza, split virus, trivalent, preservative 4 completed Not Available [facility] 03/16/2025 11:37:41 Tdap 5 completed Not Available [facility] 04/28/2025 11:27:09 Influenza, split virus, trivalent, preservative 5 completed Not Available [facility] 03/16/2025 11:37:41 Influenza, split virus, trivalent, preservative 6 completed Not Available [facility] 03/16/2025 11:37:41 Influenza, split virus, trivalent, preservative 7 completed Not Available [facility] 03/16/2025 11:37:41 Influenza, split virus, trivalent, preservative 0 completed Not Available [facility] 04/28/2025 11:27:09 Influenza, split virus, trivalent, preservative 1 completed Not Available [facility] 04/28/2025 11:27:09 Influenza, split virus, quadrivalent, PF 3 completed Not Available [facility] 04/28/2025 11:27:09 Influenza, split virus, trivalent, PF 6 completed Not Available [facility] 04/28/2025 11:27:09 Tdap 8 completed Not Available [facility] 04/28/2025 11:27:09 COVID-19, mRNA, LNP-S, PF, 30 mcg/0.3 mL dose 1 completed Not Available [facility] 04/28/2025 11:27:09 COVID-19, mRNA, LNP-S, PF, 30 mcg/0.3 mL dose 1 completed Not Available [facility] 04/28/2025 11:27:09 Influenza, split virus, quadrivalent, PF 1 completed Not Available [facility] 04/28/2025 11:27:09 COVID-19, mRNA, LNP-S, PF, 30 mcg/0.3 mL dose 1 completed Not Available [facility] 04/28/2025 11:27:09 pneumococcal polysaccharide PPV23 2 completed Not Available [facility] 04/28/2025 11:27:09 Past Encounters Encounter ID Performer Location Encounter Start Date Encounter Closed Date Diagnosis/Indication Diagnosis SNOMED-CT Code Diagnosis ICD10 Code Diagnosis IMO Codes Diagnosis Note [id number] Jocy Davis MD [facility] [address] [place] [address] 03/16/2025 11:34:32 03/16/2025 13:27:18 Type 1 diabetes mellitus 05830029 E10.9 [id number] Recommende d pt call her [place] Medicaid for a list of providers closer to home and help with endo referral. Will send in 2 months of refill and initiate internal transfer to [facility] provider closer to home for pt who manages insulin pumps. Irritable bowel syndrome 39290879 K58.2 [id number] Stable without meds at this time. No acute problems or concerns at this time. Gastroesop hageal reflux disease without esophagitis 734291900 K21.9 [id number] Stable without meds at this time. No acute problems or concerns at this time. Seasonal allergy 8937938 04 J30.2 89941 [id number] Ya Goldberg DO [address] [place] [address] 04/09/2025 10:09:58 04/09/2025 10:58:26 Type 1 diabetes mellitus 61253586 E10.9 557041 Seasonal allergy 3852225 04 J30.2 [id number] Ya GoldbergDO [address] [address] 04/13/2025 11:42:29 04/13/2025 16:28:18 Epidermoid cyst 111135277 L72.0 88901 Multiple skin tags 63921 7009 L91.8 [id number] Ya DO Yusuf [address] [address] 04/28/2025 11:26:15 04/28/2025 13:01:39 Dermoid cyst of scalp 317836159 D23.4 841654 Health Concerns Section Related Observation LastModified by Organization Detai ls LastModified Time None Recorded Concern Status LastModified by Organization Details LastModified Time None Recorded Advance Directives Directive None Recorded Payers Insurance Date Sequence Insurance Name Policy Number Policy Hernandez Covered Member ID Hernandez Member ID Guarantor Name 07/03/2025 1 [facility] (MEDICAID HMO) [id number] Rosa Isela Washington [id number] Rosa Isela Washington Notes Date Note Type Note Provider Name and Address Organization Details Recorded Time 03/16/2025 text/html Patient presents to the clinic today to establish care. Pt was previously seen by PCP in [place], and [facility] in [place], [place]. Pt is type 1 diabetic and was diagnosed when she was 9.States she has not been seen by her PCP or endo in a while. States she has not been able to find a provider anywhere close to home who takes her [place] Medicaid. Also states she has not been able to get an appt with Endo anywhere that she's called. However pt is adamant that she does not need to see Endo as she manages her diabetes well at home with home A1C testing. States her A1C has remained consistent between 5-6 for several years. Pt reports taking lisinopril 20 mg daily and loratadine and needs refills of these as well. Pt stated my office was the first one she found that accepted her insurance and could get her in before she ran out of insulin this month. Reports history of IBS and GERD but does not current take meds. Kandy Zimmer [employer] [address] [place], [address], [place] 03/16/2025 13:27:14 04/09/2025 text/html Patient presents to the clinic as an internal transfer. She has had T1DM for 21 years and states she is well controlled. She reports having very few hypo-/hyperglycem ic episodes. Patient reports she manages her diabetes by checking her blood glucose levels with finger sticks 6x/day and using an insulin pump. She requires 3 vials of Lispro per month. She has no new concerns today. YOLANDA BROWNE NP [address] [place], [address], [place] 04/09/2025 10:58:21 04/13/2025 text/html Here for removal of cyst of scalp. Also has some very small skin tags she would like removed. YOLANDA BROWNE NP [address] [place], [address], [place] 04/13/2025 16:28:12 04/28/2025 text/html Here for removal of cyst/lesion of scalp. Attempted prior, but states mass still present, feels hard and sharp underneath skin and would like excision today. YOLANDA BROWNE NP [address] [place], [address], [place], [employer] 04/28/2025 13:01:35 OBGyn Episode No OBEpisode recorded.
== END 2025-08-17 11:03 | disposition home or self-care (01) ==
PROVIDERS: Visit Provider Anesthesiology
DX: E10.65 Type 1 diabetes mellitus with hyperglycemia (principal)
CPT/HCPCS: 36415; 80048

== ENCOUNTER 2025-08-19 02:16 | Day surgery (SDC) | payer OTHER, SELFPAY ==
--- NOTE | 2025-08-07 16:21 | IDPHARM ---
[facility] has started construction of its new state of the art ER which will open Spring 2026. With this, we anticipate parking may be a challenge for some our surgical patients and families. Parking spaces are limited but are available for all Surgical, obstetrics, and ER patients sharing this lot. If you arrive and find you are having a hard time finding a parking space, please note that we understand the challenges, please drive around the hospital and park near Hospital Entrance 1. When you enter this entrance, you can ask a volunteer to direct or take you back to the surgical waiting area to check in. We appreciate everyone?s understanding of these expected challenges while we build for your future. Report to the Outpatient Waiting Room, entrance under the green pavilion located off [address], at time 1130 on date 08/19/25. Planned Procedure Time:1330.? Time changes happen often and if your time is changed the preop area will call you the afternoon before. - You and your visitor will be asked to self-screen and do not enter if you have any COVID symptoms. Please call surgeon if you need to reschedule. - A mask is optional within the hospital at this time. Patients may have clear liquids (water, carbonated beverages, clear teas, apple juice) until 3 hours prior to surgery with a maximum of 20 ounces. 1030 - No food from midnight until time of surgery and no smoking, or chewing tobacco (or any form of nicotine). No chewing gum, candy or mints. - Infants may have breast milk until 4 hours before surgery, formula 6 hours prior to surgery. - Children will be allowed to drink immediately following surgery.? If applicable, please bring a bottle or sippy cup to assist with drinking. Juice, water, soda, and popsicles are readily available.? For infants on formula, please bring formula the day of surgery.? Pacifiers are allowed. Take only the following medications with a SIP of water on the morning of surgery: continue insulin pump DO NOT STOP ANY OF YOUR OTHER PRESCRIPTION MEDICATIONS PRIOR TO SURGERY EXCEPT THE FOLLOWING Hold all vitamins and supplements for 3 days per anesthesiologist. Medications to discontinue per physician N/A Date to take last dose N/A Please no make-up, nail azeri, hairspray, perfume, deodorant, or body powder the day of surgery.? No jewelry (including any body piercings) or valuables the day of surgery, leave them at home.? Please take a shower or bath the night before, or the morning of, surgery with an antibacterial soap.? Wear comfortable, loose fitting clothing.? Children are encouraged to wear pajamas. - Jewelry must be removed prior to entering the operating room.? Rings and piercings that are not removed may be cut off. - The hospital will not accept responsibility for valuables.? - Please leave all valuables, including medications, at home the day of surgery. If you are going home after surgery, a licensed truss driver helper must drive you home.? - NO public transportation without another adult if you receive anesthesia. - We recommend that an adult stay with you for 24 hours following discharge. - We also recommend that you do not drive, make important decision, drink alcoholic beverages, or take any drugs that were not prescribed by your health care provider for at least 24 hours after your discharge time. For Pediatric surgeries, we recommend two adults accompany the child home. Follow any additional instructions given to you from your surgeon. Telephone instructions given to Patient- Rosa Isela Washington and asked if any additional questions and then verbalized understanding. Patient advised to call surgeon office or pre surgery nurse liaison [phone] if any additional questions.
[2025-08-07 16:33] VITALS: BMI 22.6
--- NOTE | 2025-08-10 20:22 | PC.NURSE ---
[facility] has started construction of its new state of the art ER which will open Spring 2026. With this, we anticipate parking may be a challenge for some our surgical patients and families. Parking spaces are limited but are available for all Surgical, obstetrics, and ER patients sharing this lot. If you arrive and find you are having a hard time finding a parking space, please note that we understand the challenges, please drive around the hospital and park near Hospital Entrance 1. When you enter this entrance, you can ask a volunteer to direct or take you back to the surgical waiting area to check in. We appreciate everyone?s understanding of these expected challenges while we build for your future. Report to the Outpatient Waiting Room, entrance under the green pavilion located off [address], at time 1130 on date 08/19/25. Planned Procedure Time:1330.? Time changes happen often and if your time is changed the preop area will call you the afternoon before. - You and your visitor will be asked to self-screen and do not enter if you have any COVID symptoms. Please call surgeon if you need to reschedule. - A mask is optional within the hospital at this time. Patients may have clear liquids (water, carbonated beverages, clear teas, apple juice) until 3 hours prior to surgery with a maximum of 20 ounces. 1030 - No food from midnight until time of surgery and no smoking, or chewing tobacco (or any form of nicotine). No chewing gum, candy or mints. - Infants may have breast milk until 4 hours before surgery, formula 6 hours prior to surgery. - Children will be allowed to drink immediately following surgery.? If applicable, please bring a bottle or sippy cup to assist with drinking. Juice, water, soda, and popsicles are readily available.? For infants on formula, please bring formula the day of surgery.? Pacifiers are allowed. Take only the following medications with a SIP of water on the morning of surgery: CONTINUE INSULIN PUMP AT YOUR NORMAL BASAL RATE DO NOT STOP ANY OF YOUR OTHER PRESCRIPTION MEDICATIONS PRIOR TO SURGERY EXCEPT THE FOLLOWING Hold all vitamins and supplements for 3 days per anesthesiologist. Medications to discontinue per physician N/A Date to take last dose N/A Please no make-up, nail kiswahili, hairspray, perfume, deodorant, or body powder the day of surgery.? No jewelry (including any body piercings) or valuables the day of surgery, leave them at home.? Please take a shower or bath the night before, or the morning of, surgery with an antibacterial soap.? Wear comfortable, loose fitting clothing.? Children are encouraged to wear pajamas. - Jewelry must be removed prior to entering the operating room.? Rings and piercings that are not removed may be cut off. - The hospital will not accept responsibility for valuables.? - Please leave all valuables, including medications, at home the day of surgery. If you are going home after surgery, a licensed trackless trolley driver must drive you home.? - NO public transportation without another adult if you receive anesthesia. - We recommend that an adult stay with you for 24 hours following discharge. - We also recommend that you do not drive, make important decision, drink alcoholic beverages, or take any drugs that were not prescribed by your health care provider for at least 24 hours after your discharge time. For Pediatric surgeries, we recommend two adults accompany the child home. Follow any additional instructions given to you from your surgeon. Telephone instructions given to PATIENT- KEVIN SÁNCHEZ and asked if any additional questions and then verbalized understanding. Patient advised to call surgeon office or pre surgery nurse liaison [phone] if any additional questions.
--- NOTE | 2025-08-19 11:24 | WPDHPUPDATE1 ---
History and Physical Update Update Date/Time: 08/19/25 11:24 History and Physical has been reviewed, including an updated exam of the patient. There are NO changes in the patient's condition. Risks, benefits, and alternatives have been discussed and questions answered. Patient agrees to proceed with procedure.
[2025-08-19 11:25] VITALS: BP 104/66; PULSE 106; RESP 16; TEMP 36.9; O2SAT 100
[2025-08-19] MEDS: ACETAMINOPHEN 500 MG TABLET 1000 MG PO (11:25)
[2025-08-19] MEDS: MIDAZOLAM HCL (*CRX) 2 MG/2 ML VIAL IV PUSH (11:25)
[2025-08-19] MEDS: LACTATED RINGERS 1,000 ML 30 ML IV CONT (11:25)
[2025-08-19 12:18] VITALS: BP 106/55; PULSE 98; RESP 12; O2SAT 100
[2025-08-19 12:45] VITALS: BP 99/60; PULSE 85; RESP 16
[2025-08-19] MEDS: oxyCODONE HCL (*CRX) 5 MG TAB IR PO (13:02)
[2025-08-19 13:15] VITALS: BP 103/56; PULSE 88; RESP 16
--- NOTE | 2025-08-19 14:14 | W.PM.PROC2 ---
Procedure Note - Detailed Date of Procedure 08/19/25 Pre-op Diagnosis displaced IUD Post-op Diagnosis Same Procedure Performed Hysteroscopic removal of foreign body Surgeon Tim Ayers MD Anesthesia MAC Indications abnormal uterine bleeding Findings IUD string not visible grossly, visualized inside the cervix with the hysteroscope, normal endometrial cavity. Normal vulva, vagina, cervix. Description of Procedure the patient was taken the operating room. She was prepped and draped in the dorsal lithotomy position after induction of mac anesthesia. A speculum was placed in the vagina. The cervix was grasped with a tenaculum. The cervix was dilated about 1 cm. The hysteroscope was inserted. The intrauterine cavity and endocervix were evaluated. Hysteroscope was withdrawn. A grasper was introduced along channel of the scope. The string of the IUD was grasped and the IUD was withdrawn. The hysteroscope was reinserted and the above findings were noted. Patient tolerated the procedure well. The speculum and tenaculum were removed. She was taken recovery room in stable condition. Sponge lap and needle counts were correct x2. Estimated Blood Loss 10 Drains No Packing No Pathology Yes Complications No immediate complications Condition Stable Disposition PACU
--- NOTE | 2025-08-20 08:57 | P.PNAN_ITS ---
Anes - Initial Pre Proc Eval Procedure: Operation Date: 08/19/25 12:00 Proposed Procedures p Hysteroscopy, Removal Foreign Body - Tim Ayers MD Date/Time: 08/20/25 08:57 Surgeon: Tim Ayers MD Pre Op Diagnosis: displaced IUD Patient Data Age: 30 Gender: F Height: 1.55 m Weight: 55.5 kg Last Vital Signs Temp 36.9 C 08/19/25 11: Pulse 88 08/19/25 13:15 Resp 16 08/19/25 13:15 BP 103/56 L 08/19/25 13:15 Pulse Ox 100 08/19/25 12:18 O2 Del Method Room Air 08/19/25 13:15 Allergies Allergy/AdvReac Type Severity Reaction Status Date / Time cefixime Allergy Mild Rash Verified 08/19/25 14:23 clindamycin Allergy Mild Vomiting Verified 08/19/25 14:23 buspirone (From BuSpar) Allergy Anaphylaxis Verified 08/19/25 14:23 Home Medications ?Medication ?Instructions ?Recorded ?Confirmed ?Type subcutaneous insulin pump #1 ea 09/24/19 05/19/24 Hist ory lancets 28 gauge (OneTouch #550 ea 01/20/21 05/19/24 R x [employer]) OneTouch Verio test strips (blood #600 ea 07/31/2203/07 Rx sugar diagnostic) infusion set for insulin pump #30 ea 11/14/22 05/19/24 Rx (MiniMed Quick Set 23) insulin pump syringe 3 mL (MiniMed #30 ea 11/14/2203/07 Rx Syringe [place]) insulin lispro 100 unit/mL See Rx Instructions .Route 01/16/24 08/07/25 Rx subcutaneous solution (Humalog .COMPLEX #90 mL U-100 Insulin) lancets (Microlet Lancet) #500 ea 01/16/24 05/19/24 Rx glucagon 1 mg/0.2 mL subcutaneous 1 mg (0.2 mL) subcut ONCE PRN 01/22/24 08/07/25 Rx auto-injector (Gvoke HypoPen hypoglycemia #0.2 mL 1-Pack) blood sugar diagnostic (Contour #500 ea 05/19/2405/19 Rx Next Test Strips) blood-glucose meter (Contour Next #1 ea 05/19/2405/19 Rx Glucose Meter kit) lisinopril 10 mg tablet 20 mg PO DAILY 08/07/25 1002/06 History loratadine 10 mg tablet (Allergy 10 mg PO DAILY 08/07/25 History Relief (loratadine)) Laboratory Tests 08/19/25 08/19/25 11:30 12:23 POC Capillary Glucose 153 H mg/dl 130 H mg/dl (65-105) (65-105) Patient hx anesthesia problems: none Family hx anesthesia problems: none Results Review: All pre-operative results and documents have been reviewed as part of the pre- operative evaluation. [facility] Past Medical History Medical History Hyperlipidemia Hypercholesteremia Thyroid nodule Kidney stones Peripheral neuropathy Chronic pharyngitis Irritable bowel syndrome GERD (gastroesophageal reflux disease) Anxiety MDD (major depressive disorder) Type 1 diabetes mellitus with hyperglycemia, with long-term current use of insulin Marijuana abuse, continuous Insulin dependent diabetes mellitus Surgical History Surgical History H/O wisdom tooth extraction Family History Family History Mother Family history of obesity Family history of mental disorder Family history of migraine headaches Grandparent Family history of mental disorder Depression Hypertension Asthma Carcinoma of colon Thyroid disorder Mother Hypertension Family history of renal cell carcinoma Depression Father Hypertension Grandparent Carcinoma of colon Unknown Kidney disease Nervous system disorder, central Allergies Social History Social History Social History: Caffeine use; soda occasionally Smoking status: Never smoker Second hand tobacco smoke exposure: No Alcohol intake: current Alcohol use details: one a month Substance use: current Substance use type: marijuana Other substance usage details: 3x week- smoking Last use: 02/04/2023 Lack of Transportation: No Lack of Food: Never True Current Housing: I Have Housing Concerned About Future Housing: No Difficulty Paying Gas/Electric Bills: No Difficulty Paying for Meds: No Currently Unemployed: No Education: High School Diploma/GED Difficulty w/ Childcare or Family Care: No Occupation/Education: unemployed Gender identity (if verbalized by the patient): Female Spiritual care concerns: No Anes - Eval Final PreProcedure Day of Procedure 08/20/25 08:57 Patient weight: normal Heart: regular rate and rhythm Lungs: decreased breath sounds Airway: Mallampati scale class II Neurological: alert and oriented Last oral intake: >/= 8 hours ASA classification: III Emergent: no Anesthetic plan: proceed Anesthesia type and monitoring: general GIVS and standard monitoring Results Review: All pre-operative results and documents have been reviewed as part of the pre- operative evaluation. Informed Consent: The patient's anesthetic plan and its attendant risks and benefits were discussed with the patient/family/POA. Questions were solicited and answers provided to the satisfaction of the patient/family/POA.
== END 2025-08-19 13:31 | disposition home or self-care (01) ==
PROVIDERS: Visit Provider Obstetrics & Gynecology
PROC: 0U5B8ZZ Destruction of Endometrium, Via Natural or Artificial Opening Endoscopic (ICD-10-PCS; CPT 58563; principal; 2025-08-19 12:00)
DX: T83.32XA Displacement of intrauterine contraceptive device, initial encounter (principal); Y83.8 Other surgical procedures as the cause of abnormal reaction of the patient, or of later complication, without mention of misadventure at the time of the procedure; E78.5 Hyperlipidemia, unspecified; K58.9 Irritable bowel syndrome, unspecified; K21.9 Gastro-esophageal reflux disease without esophagitis; F41.9 Anxiety disorder, unspecified; G62.9 Polyneuropathy, unspecified; J31.2 Chronic pharyngitis; F32.9 Major depressive disorder, single episode, unspecified; E10.65 Type 1 diabetes mellitus with hyperglycemia; F12.90 Cannabis use, unspecified, uncomplicated; Z79.4 Long term (current) use of insulin; Z96.41 Presence of insulin pump (external) (internal); Z98.890 Other specified postprocedural states; Z87.442 Personal history of urinary calculi; Z80.0 Family history of malignant neoplasm of digestive organs
CPT/HCPCS: 58579; 82948; A9270; J2250; J2704; J3010; J7120